=== PATIENT | male | born 1960 | race Asian ===

== ENCOUNTER 2019-08-12 12:03 | Inpatient (IN) | payer MEDICAID, OTHER ==
[~2019-08-12] VITALS: Ht 172.7 cm; Wt 74.8 kg
[2019-08-12 11:59] VITALS: BP 142/82
--- NOTE | 2019-08-12 12:14 | NUR ---
ED Nurse Note: RECEUVED REPORT FROM EDMAR BATISTA RN, PT BROUGHT IN BY AMBULANCE AND PICKED UP FROM A CLINIC CAME IN DUE TO RESPIRATORY DISTRESS AND LOW OXYGEN SATURATION. PER EMS, PT WAS COUGHING X 2 DAYS. DENIES CP. AAOX4, AMBULATORY WITH SOB AT REST. NOTED SKIN IS PALE BUT WARM TO TOUCH.
--- NOTE | 2019-08-12 12:15 | NUR ---
Note undone in EDM - 08/12/19 at 1545 by BILL ED Nurse Note: RECEUVED REPORT FROM EDMAR BATISTA RN, PT BROUGHT IN BY AMBULANCE AND PICKED UP FROM A CLINIC CAME IN DUE TO RESPIRATORY DISTRESS AND LOW OXYGEN SATURATION. PER EMS, PT WAS COUGHING X 2 DAYS. DENIES CP. AAOX1, AMBULATORY WITH SOB AT REST. NOTED SKIN IS PALE BUT WARM TO TOUCH.
--- NOTE | 2019-08-12 12:15 | Emergency Room Report ---
History of Present Illness General Chief Complaint: Dyspnea/Respdistress Source: Patient Present Illness HPI Disclaimer: Please note that this report is being documented using [employer] technology. This can lead to erroneous entry secondary to incorrect interpretation by the dictating instrument. HPI: 58-year-old male with no reported medical history presents for evaluation of shortness of breath. He is primarily Yoruba speaking. Patient was seen at his PMDs office today for not feeling well and a nonproductive cough of 3 days duration. He became acutely short of breath while at the office and EMS was called. They found him hypoxic saturating in the low 80s. Improved somewhat with nasal cannula but not greater than 88%. Otherwise denying any fever. He had chest pain 3 days ago but no longer complaining of it. Denies lower extremity edema. Denies any recent nasal congestion, sinus pain, sore throat, rash, fevers. Smokes cigarettes. PMH: Denies PSH: Denies Allergies: Denies Social Hx: Smokes cigarettes Allergies: Coded Allergies: No Known Allergies (Unverified , 08/12/19) Nursing Documentation-PMH Past Medical History: No Stated History Review of Systems All Other Systems: negative except mentioned in HPI Physical Exam Vital Signs Date Time Temp Pulse Resp B/P (MAP) Pulse Ox O2 Delivery O2 Flow Rate FiO2 08/12/19 11:27 97.5 142/82 (102) Room Air General: Awake and alert, no acute distress HEENT: NC/AT. EOMI. Cardiovascular: Tachycardic. S1 and S2 normal. No murmur appreciated Resp: 92% on 10 L nonrebreather. Increased work of breathing. Intermittent cough. Crackles mcfp up the left lung. No wheezing Abdomen: Abdomen is soft, nondistended. Nontender Skin: Intact. No abrasions, laceration or rash over the exposed skin MSK: Normal tone and bulk. Moving all extremities. No obvious deformity. No lower extremity edema Neuro: Awake and alert. Mentating appropriately. Procedures Critical Care Time Critical Care Time Total critical care time: Approximately 45 minutes Due to a high probability of clinically significant, life threatening deterioration, the patient required the highest level of preparedness to intervene emergently and I personally spent this critical care time directly and personally managing the patient. This critical care time included obtaining a history, examining the patient, pulse oximetry, ordering and reviewing studies , ordering treatments, evaluating response to treatment and updating management plan as needed, frequent reassessment and discussion with other providers as well as arranging for ultimate disposition. This critical to care time was performed to assess and manage the high probability of life-threatening deterioration that could result in multiorgan failure. This critical care time is separate from the separately billable procedures and treating other patients. Medical Decision Making ER Course 58-year-old male no reported medical history presents for evaluation of sudden onset shortness of breath in the setting of 3 days worsening cough. Differential includes was not limited to pneumonia, bronchitis, viral illness, influenza, pneumothorax, pleural effusion, ACS, CHF, PE. Patient has bilateral crackles, persistent hypoxia requiring increasing oxygen now on 10 L nonrebreather. We will start broad sepsis work-up including EKG, chest x-ray, labs including lactate. Laboratory Tests Test 08/12/19 11:50 08/12/19 12:50 White Blood Count 10.7 K/UL (4.8-10.8) Red Blood Count 4.77 M/UL (4.70-6.10) Hemoglobin 14.5 G/DL (14.2-18.0) Hematocrit 42.8 % (42.0-52.0) Mean Corpuscular Volume 90 FL (80-99) Mean Corpuscular Hemoglobin 30.4 PG (27.0-31.0) Mean Corpuscular Hemoglobin Concent 33.8 G/DL (32.0-36.0) Red Cell Distribution Width 11.4 % (11.6-14.8) L Platelet Count 323 K/UL (150-450) Mean Platelet Volume 5.8 FL (6.5-10.1) L Neutrophils (%) (Auto) 79.9 % (45.0-75.0) H Lymphocytes (%) (Auto) 10.5 % (20.0-45.0) L Monocytes (%) (Auto) 8.8 % (1.0-10.0) Eosinophils (%) (Auto) 0.2 % (0.0-3.0) Basophils (%) (Auto) 0.6 % (0.0-2.0) Prothrombin Time 10.4 SEC (9.30-11.50) Prothrombin Time INR 1.0 (0.9-1.1) PTT 27 SEC (23-33) D-Dimer 1.07 mg/L FEU (0.00-0.49) H Sodium Level 139 MMOL/L (136-145) Potassium Level 4.0 MMOL/L (3.5-5.1) Chloride Level 103 MMOL/L (98-107) Carbon Dioxide Level 24 MMOL/L (21-32) Anion Gap 12 mmol/L (5-15) Blood Urea Nitrogen 18 mg/dL (7-18) Creatinine 0.9 MG/DL (0.55-1.30) Estimate Glomerular Filtration Rate > 60 mL/min (>60) Glucose Level 154 MG/DL (74-106) H Calcium Level 9.0 MG/DL (8.5-10.1) Total Bilirubin 0.9 MG/DL (0.2-1.0) Aspartate Amino Transferase (AST) 22 U/L (15-37) Alanine Aminotransferase (ALT) 27 U/L (12-78) Alkaline Phosphatase 43 U/L (46-116) L Troponin I 0.022 ng/mL (0.000-0.056) Pro-B-Type Natriuretic Peptide 1548 pg/mL (0-125) H Total Protein 7.0 G/DL (6.4-8.2) Albumin 3.2 G/DL (3.4-5.0) L Globulin 3.8 g/dL Albumin/Globulin Ratio 0.8 (1.0-2.7) L Arterial Blood pH 7.398 (7.350-7.450) Arterial Blood Partial Pressure CO2 35.0 mmHg (35.0-45.0) Arterial Blood Partial Pressure O2 57.8 mmHg (75.0-100.0) L Arterial Blood HCO3 21.1 mmol/L (22.0-26.0) L Arterial Blood Oxygen Saturation 88.2 % (95-100) *L Arterial Blood Base Excess -3.0 (-2-2) L Jason Test Positive Microbiology Date/Time Source Procedure Growth Status 08/12/19 11:30 Nasal Nares - Final Complete 08/12/19 11:30 Nasal Nares - Final Complete EKG Diagnostic Results EKG Time: 12:09 Rate: tachycardiac Rhythm: NSR ST Segments: no acute changes Other Impression Sinus tachycardia, normal axis, normal intervals. No ST segment changes Rhythm Strip Diag. Results Rhythm Strip Time: 12:09 EP Interpretation: yes Rate: 110s Rhythm: NSR, no PVC's, no ectopy Chest X-Ray Diagnostic Results Chest X-Ray Diagnostic Results : Chest X-Ray Ordered: Yes # of Views/Limited/Complete: 1 View Indication: Shortness of Breath EP Interpretation: Yes Interpretation: other - Bilateral consolidations. Questionable pulmonary procedure in the past given lung scarring Impression: Other - Bilateral pneumonia, lung scarring Electronically Signed by: Electronically signed by Dr. Taz Bee Reevaluation Time: 13:40 Last Vital Signs Date Time Temp Pulse Resp B/P (MAP) Pulse Ox O2 Delivery O2 Flow Rate FiO2 08/12/19 11:27 97.5 142/82 (102) Room Air Reevaluation Impression Chest x-ray concerning for bilateral pneumonia. Cultures are sent and patient was treated with vancomycin and Zosyn. There is some scarring in the right lung unknown significance. Patient's family says that he had pleural effusions in the past. This may be prior pleurodesis. Labs show normal white count to though there is a shift. Blood gas shows hypoxia with an O2 saturation of 88%. The patient started on BiPAP. Normal renal function, troponin is negative. Peptide slightly elevated at 1500. D-dimer is positive. At this time I have far less concern for pulmonary embolism given his clinical appearance and his x- ray. Patient cannot tolerate laying flat for a CTA at this time. We will treat his pneumonia and reevaluate. He will require admission to the stepdown unit. Tachycardia is improving. Scripts No Active Prescriptions or Reported Meds Taz Bee MD Aug 12, 2019 12:15
--- NOTE | 2019-08-12 12:44 | NUR ---
ED Nurse Note: CALLED RADIOLOGY FOR CXR.
--- NOTE | 2019-08-12 12:50 | NUR ---
ED Nurse Note: SKIN FORMER AT THE BED SIDE FOR CXR.
[2019-08-12 12:52] LABS: BASOPHILS % (AUTO) 0.6 % (0.0-2.0); EOSINOPHILS % (AUTO) 0.2 % (0.0-3.0); HEMATOCRIT 42.8 % (42.0-52.0); HEMOGLOBIN 14.5 G/DL (14.2-18.0); LYMPHOCYTES % (AUTO) 10.5 % (20.0-45.0); MEAN CORPUSCULAR VOLUME 90 FL (80-99); MONOCYTES % (AUTO) 8.8 % (1.0-10.0); NEUTROPHILS % (AUTO) 79.9 % (45.0-75.0); PLATELET COUNT 323 K/UL (150-450); RED BLOOD COUNT 4.77 M/UL (4.70-6.10); RED CELL DISTRIBUTION WIDTH 11.4 % (11.6-14.8); WHITE BLOOD COUNT 10.7 K/UL (4.8-10.8)
[2019-08-12 12:56] LABS: ANION GAP 12 mmol/L (5-15); BLOOD UREA NITROGEN 18 mg/dL (7-18); CARBON DIOXIDE 24 MMOL/L (21-32); CHLORIDE 103 MMOL/L (98-107); CREATININE 0.9 MG/DL (0.55-1.30); SODIUM 139 MMOL/L (136-145)
[2019-08-12 13:04] LABS: ALANINE AMINOTRANSFERASE 27 U/L (12-78); ALBUMIN 3.2 G/DL (3.4-5.0); ALBUMIN/GLOBULIN RATIO 0.8 (1.0-2.7); ALKALINE PHOSPHATASE 43 U/L (46-116); ASPARTATE AMINO TRANSFERASE 22 U/L (15-37); BILIRUBIN,TOTAL 0.9 MG/DL (0.2-1.0)
--- NOTE | 2019-08-12 13:24 | NUR ---
ED Nurse Note: RT AT THE BED SIDE FOR ABG.
[2019-08-12] MEDS ORDERED: Vancomycin 1 GM in NS 275 ML IVPB ONE (13:30)
[2019-08-12] MEDS ORDERED: Piperacillin/Tazobactam 3.375 GM in NS 110 ML IVPB ONE (13:30)
[2019-08-12 13:54] VITALS: BP 140/104
--- NOTE | 2019-08-12 14:15 | NUR ---
ED Nurse Note: PT UNABLE TO PROVIDE SPUTUM AT THIS TIME.
[2019-08-12 14:43] VITALS: BP 139/99
--- NOTE | 2019-08-12 14:47 | NUR ---
ED Nurse Note: JUDD (SON) [phone]
--- NOTE | 2019-08-12 15:10 | Diagnostic Imaging Report ---
Indication: Shortness of breath Technique: One view of the chest Comparison: none Findings: There are fairly extensive infiltrates bilaterally in a predominantly perihilar distribution. Dense pleural calcifications and thickening are seen in the right lateral lung. There may be trace pleural fluid bilaterally. The heart is borderline enlarged. The aorta is tortuous and ectatic Impression: Bilateral extensive but predominantly perihilar infiltrates versus edema Possible trace bilateral pleural effusions Dense right-sided pleural calcifications, may indicate old inflammatory disease Borderline cardiomegaly
[2019-08-12] MEDS ORDERED: Morphine Sulfate 2mg/ml Inj(IV/IM USE ONLY) IVP PRN (15:45)
[2019-08-12] MEDS ORDERED: Albuterol/Ipratropium 3ml neb HHN PRN (15:45)
[2019-08-12] MEDS ORDERED: Nitroglycerin Subl 0.4mg tab SL PRN (15:45)
[2019-08-12] MEDS ORDERED: Omnipaue 350mg/ml 100ml vial INJ PRN (15:45)
[2019-08-12] MEDS ORDERED: Miralax 17gm pkt ORAL PRN (15:45)
--- NOTE | 2019-08-12 15:45 | NUR ---
ED Nurse Note: REPORT GIVEN TO GABINO CURTIS OF SDU.
--- NOTE | 2019-08-12 16:30 | NUR ---
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
[2019-08-12 16:40] VITALS: BP 149/99
--- NOTE | 2019-08-12 17:04 | Diagnostic Imaging Report ---
ndication: Short of breath Technique: IV administration nonionic contrast. Spiral acquisitions obtained from the lung bases to the lung apices. Multiplanar and 3-D reconstructions were generated. Total dose length product 764 mGycm. CTDIvol(s) 23, 78, 15 mGy. Dose reduction achieved using automated exposure control Comparison: none. Reference made to chest radiograph of earlier the same day Findings: Pulmonary arteries are well-opacified. No intraluminal filling defects or other findings to suggest acute ulnar embolus are demonstrated. Right main pulmonary artery is ectatic, measuring 28 mm diameter. The main pulmonary artery is somewhat ectatic also, measuring 34 mm. No right ventricular dilatation is demonstrated. There is mild four-chamber cardiomegaly, however. No evidence of thoracic aortic aneurysm or dissection. Normal caliber and classic branching anatomy of the great neck vessels. Normal caliber and anatomy of the proximal abdominal visceral vessels. The lungs demonstrate extensive airspace disease bilaterally, diffuse but most dense in the perihilar regions. There is extensive calcification and thickening of the pleura on the right. No diaphragmatic pleural calcification demonstrated. No left-sided calcification demonstrated. No left-sided pleural fluid. There are enlarged mediastinal lymph nodes, largest node a left paratracheal node that measures 2.7 x 2 cm. The included portion of the thyroid is unremarkable. The esophagus is unremarkable. No pericardial effusion. Included upper abdominal viscera are unremarkable. Impression: Negative for evidence of acute pulmonary embolus or other acute thoracic vascular pathology Extensive bilateral pulmonary parenchymal airspace disease. This may indicate pneumonia or pulmonary edema Extensive right-sided pleural thickening and calcification, likely on the basis of old inflammation Cardiomegaly Somewhat ectatic main and right pulmonary arteries, suggestive of but not diagnostic for pulmonary arterial hypertension Mediastinal lymphadenopathy. This is nonspecific, could be reactive or neoplastic The CT scanner at [facility] is accredited by the [employer] and the scans are performed using protocols designed to limit radiation exposure to as low as reasonably achievable to attain images of sufficient resolution adequate for diagnostic evaluation.
--- NOTE | 2019-08-12 18:00 | NUR ---
NURSE NOTES: Pt sitting in bed in high fowlers position,verbalized feeling better ,still on Bipap,no resp distress presented,son at bedside.
--- NOTE | 2019-08-12 19:00 | NUR ---
HAND-OFF: Report given to Judith Mosley RN.
--- NOTE | 2019-08-12 19:31 | History & Physical ---
History and Physical History & Physicial Dictated for Int Med-DR Lentz [id number]. Kuldeep Márquez MD Aug 12, 2019 19:31
--- NOTE | 2019-08-12 19:58 | NUR ---
NURSE NOTES: received pt from Tamiko Ricketts RN., pt is awake and resting on the bed and sitting up right position with bipap 12/6 Fio2 100% at this moment. pt is AOx4 and Uzbek speaker, pt's son is at the bed side. pt states no pain at this moment. pt's O2sat with Bipap is at 100% at this moment.Left AC 20G IV is intact, clean, and patent that 1/2 NS is running at 150ml/hr, bed at the lowest position, locked, and alarmed. will continue to monitor pt with plan of care. call light within reach.
[2019-08-12 20:00] VITALS: BP 122/85
[2019-08-12] MEDS: Cefepime HCl 2 GM in D5W 110 ML IV SCH (21:24)
[2019-08-12] MEDS: Heparin 5000 units/ml inj SUBQ SCH (21:26)
[2019-08-12 22:43] LABS: APPEARANCE,URINE CLEAR; BILIRUBIN, URINE NEGATIVE (NEGATIVE); GLUCOSE, URINE (UA) NEGATIVE (NEGATIVE); KETONES,URINE 3+ (NEGATIVE); LEUKOCYTE ESTERASE ,URINE NEGATIVE (NEGATIVE); NITRITE,URINE NEGATIVE (NEGATIVE); PH,URINE 5 (4.5-8.0); PROTEIN,URINE 2+ (NEGATIVE); UROBILINOGEN,URINE NORMAL MG/DL (0.0-1.0)
[2019-08-12 22:44] LABS: COLOR,URINE YELLOW
--- NOTE | 2019-08-12 22:45 | History and Physical Report ---
DATE OF ADMISSION: 08/12/2019 CHIEF COMPLAINT: The patient is a 58-year-old male, presents with chief complaint of shortness of breath. HISTORY OF PRESENT ILLNESS: The patient denies previous medical history. The patient states he has had a cough for three days. The patient became increasingly short of breath. The patient called EMS this morning. The patient was found to have oxygen saturation in the low 80s. The patient was transported to [facility] emergency room for respiratory distress. REVIEW OF SYSTEMS: CONSTITUTIONAL: The patient denies weight loss or gain. The patient denies fevers or chills. HEENT: The patient denies ear or throat pain. The patient denies headache. CARDIOVASCULAR: The patient denies palpitations or chest pain. CHEST: The patient complains of shortness of breath as above. The patient denies wheezes. ABDOMEN: The patient denies nausea, vomiting, diarrhea, or constipation. GENITOURINARY: The patient denies dysuria or increased frequency of urination. NEUROMUSCULAR: The patient denies seizures or generalized weakness. PAST MEDICAL HISTORY: The patient denies. PAST SURGICAL HISTORY: The patient denies. CURRENT MEDICATIONS: The patient denies. ALLERGIES: No known drug allergies. SOCIAL HISTORY: The patient is single and lives alone. The patient admits to tobacco use one pack per day. The patient denies alcohol use. PHYSICAL EXAMINATION: VITAL SIGNS: Temperature 97.5, respirations 34, pulse 117, blood pressure 142/82, and oxygen saturation 87% on 10 L simple mask. GENERAL: The patient is well-developed and well-nourished male, who is in moderate respiratory distress. HEENT: Eyes, pupils are equal and responsive to light and accommodation. Extraocular movements are intact. NECK: Supple without lymphadenopathy. CHEST: Decreased breath sounds in bilateral bases. Otherwise, without crackles or rales. CARDIOVASCULAR: Regular rate. S1, S2 normal without murmurs, rubs, or gallops. ABDOMINAL: Soft, nontender, and nondistended. Positive bowel sounds. No evidence of hepatosplenomegaly. Currently, no rebound or guarding noted. EXTREMITIES: Negative for clubbing, cyanosis, or edema. RECTAL: Not performed. GENITAL: Not performed. NEUROLOGIC: Cranial nerves II through XII are grossly intact without focal deficits. Motor strength is 5/5 bilaterally. Deep tendon reflexes are 2+, plantar. LABORATORY AND DIAGNOSTIC STUDIES: WBC 10.7, hemoglobin 14.5, hematocrit 42.8, and platelets 323,000. Sodium 139, potassium 4.0, chloride 103, CO2 24, BUN 18, creatinine 0.9, glucose 154. BNP elevated at 1548. Chest x-ray was reported as bilateral extensive perihilar infiltrate versus edema. ASSESSMENT: This is a 58-year-old male: 1. Shortness of breath. 2. Respiratory distress. 3. Bilateral pneumonia. 4. Congestive heart failure. TREATMENT: 1. Shortness of breath/respiratory distress/bilateral pneumonia. Pulmonary consultation has been obtained with Dr. Tiffani Baker. The patient is admitted to the [facility] unit. The patient has been started empirically on vancomycin and cefepime. We will follow recommendations of Pulmonary. 2. Congestive heart failure. Cardiology consultation has been obtained with Dr. Jose Arambula. We will follow recommendation of Cardiology. An echocardiogram is pending. Kuldeep Márquez M.D. DR: TIFF JOB#: [id number] CC:
[2019-08-13] VITALS: BP 123/88
[2019-08-13] MEDS: Vancomycin 750 MG in D5W 275 ML IVPB SCH ×2 (01:50→12:34)
--- NOTE | 2019-08-13 03:00 | NUR ---
NURSE NOTES: pt is resting on the bed, states no pain at this moment.oral care given. Bipap is on. bed at the lowest position, alarmed, and locked. call light within reach. will continue to monitor pt.
[2019-08-13 04:00] VITALS: BP 120/85
[2019-08-13 06:05] LABS: BASOPHILS % (AUTO) 1.2 % (0.0-2.0); EOSINOPHILS % (AUTO) 1.1 % (0.0-3.0); HEMATOCRIT 36.4 % (42.0-52.0); HEMOGLOBIN 12.3 G/DL (14.2-18.0); MEAN CORPUSCULAR VOLUME 91 FL (80-99); MONOCYTES % (AUTO) 10.9 % (1.0-10.0); NEUTROPHILS % (AUTO) 71.8 % (45.0-75.0); PLATELET COUNT 258 K/UL (150-450); RED BLOOD COUNT 4.01 M/UL (4.70-6.10); RED CELL DISTRIBUTION WIDTH 11.6 % (11.6-14.8); WHITE BLOOD COUNT 8.5 K/UL (4.8-10.8)
[2019-08-13 06:48] LABS: ALANINE AMINOTRANSFERASE 20 U/L (12-78); ALBUMIN 2.5 G/DL (3.4-5.0); ALBUMIN/GLOBULIN RATIO 0.8 (1.0-2.7); ALKALINE PHOSPHATASE 35 U/L (46-116); ANION GAP 8 mmol/L (5-15); ASPARTATE AMINO TRANSFERASE 14 U/L (15-37); BLOOD UREA NITROGEN 18 mg/dL (7-18); CALCIUM 8.1 MG/DL (8.5-10.1); CARBON DIOXIDE 25 MMOL/L (21-32); CHLORIDE 104 MMOL/L (98-107); CREATININE 0.8 MG/DL (0.55-1.30); SODIUM 137 MMOL/L (136-145)
--- NOTE | 2019-08-13 07:14 | NUR ---
RESPIRATORY NOTE: received pt on bipap on current settings with fio2 70%. will attempt to titrate through out the day. foam barrier in place and no visible redness or skin wounds. will cont to monitor.
--- NOTE | 2019-08-13 07:24 | NUR ---
HAND-OFF: Report given to Tamiko Duff RN. pt is in stable condition
--- NOTE | 2019-08-13 07:54 | NUR ---
NURSE NOTES: Report received from Judith Mosley RN.Pt sitting upright on bed ,asleep easy to arouse,noted no resp distress on BIPAP / ,Fio2 70%,o2 sat 97%,no signs of pain or discomfort S-R on the monitor,uses urinal to void,skin warm and dry ,IV site to LAC intact with IVF 1/2 NS at 150 ml/hr,call peña within reach,SR up x2 ,HOB elevated,bed lock in lowest position,will continue with plans of care.
[2019-08-13 08:00] VITALS: BP 117/82
[2019-08-13] MEDS: Cefepime HCl 2 GM in D5W 110 ML IV SCH ×2 (08:34→21:36)
[2019-08-13] MEDS: Heparin 5000 units/ml inj SUBQ SCH ×2 (08:36→21:38)
[2019-08-13 12:00] VITALS: BP 130/87
--- NOTE | 2019-08-13 12:00 | NUR ---
NURSE NOTES: Dr Horowitz at bedside,discussed with pt and son acting as certified court interpreter re plans of care.
--- NOTE | 2019-08-13 12:47 | Consultation ---
History of Present Illness General Date patient seen: Aug 13, 2019 Chief Complaint: Dyspnea/Respdistress Reason for Consultation: PNA Present Illness HPI Mr. Styles is a 58 yo male who was sent to the ED from his PMD for cough and SOB. The patient reports no known medical problems. He has been having 7 days of dry cough and not feeling well. He denies having fever, sore throat, or chest pain and sick contacts. He has had a chronic cough for many years bit no ULLOA. He also reports muscle pain and diarrhea which have since resolved. He was recently in [place] for three months. He returned 5 days ago. In the ED he was afebrile with no leukocytosis. His UA was neg. He had significant hypoxia and has to be placed on BiPAP for a short time. He is now on facemask. A CTA of the chest showed Extensive bilateral pulmonary parenchymal airspace disease. This may indicate pneumonia or pulmonary edema. 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 FamHx Not Contributory Allergies: Coded Allergies: No Known Allergies (Unverified , 08/12/19) Medication History No Active Prescriptions or Reported Meds Patient History Healthcare decision maker n/a Resuscitation status Full Code Advanced Directive on File No Review of Systems ROS Narrative 12 point ROS negative except as noted in the HPI Physical Exam Physical Exam Narrative Gen: NAD On facemask HEENT: NCAT, MMM, EOMI, PERRL, No Oral lesion, no scleral icterus NECK: full range of motion, supple, no meningismus, No LAD, No JVD LUNGS: Coarse B/L, No Accessory muscle use CARDS: RRR, S1, S2, No M/R/G, ABD: Soft, NT, ND, No R/G, + BS, No HSM, No Masses : Deferred Ext: C/C/E, Pulses 2+ B/L (DP, Rad): NEURO: A/O x 4, Strength and Sensation Grossly intact PSYCH: Normal mood and affect SKIN: Warm/dry, No rashes Last 24 Hour Vital Signs Date Time Temp Pulse Resp B/P (MAP) Pulse Ox O2 Delivery O2 Flow Rate FiO2 08/13/19 12:00 50 08/13/19 10:59 98 31 93 Facial 50 08/13/19 09:19 95 08/13/19 08:44 104 31 97 Facial 60 08/13/19 08:00 97.6 97 18 117/82 (94) 98 08/13/19 08:00 60 08/13/19 08:00 Bi-pap 08/13/19 07:13 93 32 99 Facial 70 08/13/19 05:17 98 36 100 Facial 70 08/13/19 04:00 Bi-pap 08/13/19 04:00 98.7 100 28 120/85 (97) 100 08/13/19 04:00 80 08/13/19 03:32 91 08/13/19 03:00 100 32 98 Facial 80 08/13/19 01:06 98 32 100 Facial 100 08/13/19 00:00 92 08/13/19 00:00 100 08/13/19 00:00 99.8 97 26 123/88 (100) 100 08/12/19 23:55 Bi-pap 08/12/19 23:49 101 36 99 Facial 100 08/12/19 21:00 101 32 100 Facial 100 08/12/19 20:00 100 08/12/19 20:00 98.6 99 24 122/85 (97) 100 08/12/19 19:32 104 08/12/19 19:19 106 44 99 Facial 100 08/12/19 17:23 106 37 100 Facial 100 08/12/19 17:05 Bi-pap 15.0 08/12/19 16:40 98.1 101 25 149/99 (116) 100 08/12/19 16:02 98.9 90 38 129/98 100 Bi-pap 10.0 100 08/12/19 15:17 101 35 100 Facial 100 08/12/19 14:43 98.0 87 40 139/99 100 Bi-pap 100 08/12/19 13:54 97.5 90 25 140/104 100 Bi-pap 08/12/19 13:53 103 30 100 Facial 100 Intake and Output 08/12/19 08/13/19 19:00 07:00 Intake Total 683.7 ml 2035.0 ml Output Total 300 ml Balance 683.7 ml 1735.0 ml Intake Oral 240 ml IV Total 443.7 ml 2035.0 ml Output Urine Total 300 ml # Voids 1 1 Laboratory Tests Test 08/12/19 12:50 08/12/19 13:15 08/12/19 22:00 08/13/19 05:10 Arterial Blood pH 7.398 (7.350-7.450) Arterial Blood Partial Pressure CO2 35.0 mmHg (35.0-45.0) Arterial Blood Partial Pressure O2 57.8 mmHg (75.0-100.0) L Arterial Blood HCO3 21.1 mmol/L (22.0-26.0) L Arterial Blood Oxygen Saturation 88.2 % (95-100) *L Arterial Blood Base Excess -3.0 (-2-2) L Jason Test Positive Lactic Acid Level 1.40 mmol/L (0.4-2.0) Urine Color Yellow Urine Appearance Clear Urine pH 5 (4.5-8.0) Urine Specific [place] 1.015 (1.005-1.035) Urine Protein 2+ (NEGATIVE) H Urine Glucose (UA) Negative (NEGATIVE) Urine Ketones 3+ (NEGATIVE) H Urine Blood Negative (NEGATIVE) Urine Nitrite Negative (NEGATIVE) Urine Bilirubin Negative (NEGATIVE) Urine Urobilinogen Normal MG/DL (0.0-1.0) Urine Leukocyte Esterase Negative (NEGATIVE) Urine RBC 0-2 /HPF (0 - 0) H Urine WBC 0-2 /HPF (0 - 0) Urine Squamous Epithelial Cells None /LPF (NONE/OCC) Urine Bacteria None /HPF (NONE) White Blood Count 8.5 K/UL (4.8-10.8) Red Blood Count 4.01 M/UL (4.70-6.10) L Hemoglobin 12.3 G/DL (14.2-18.0) L Hematocrit 36.4 % (42.0-52.0) L Mean Corpuscular Volume 91 FL (80-99) Mean Corpuscular Hemoglobin 30.5 PG (27.0-31.0) Mean Corpuscular Hemoglobin Concent 33.7 G/DL (32.0-36.0) Red Cell Distribution Width 11.6 % (11.6-14.8) Platelet Count 258 K/UL (150-450) Mean Platelet Volume 5.9 FL (6.5-10.1) L Neutrophils (%) (Auto) 71.8 % (45.0-75.0) Lymphocytes (%) (Auto) 15.0 % (20.0-45.0) L Monocytes (%) (Auto) 10.9 % (1.0-10.0) H Eosinophils (%) (Auto) 1.1 % (0.0-3.0) Basophils (%) (Auto) 1.2 % (0.0-2.0) Sodium Level 137 MMOL/L (136-145) Potassium Level 4.0 MMOL/L (3.5-5.1) Chloride Level 104 MMOL/L (98-107) Carbon Dioxide Level 25 MMOL/L (21-32) Anion Gap 8 mmol/L (5-15) Blood Urea Nitrogen 18 mg/dL (7-18) Creatinine 0.8 MG/DL (0.55-1.30) Estimat Glomerular Filtration Rate > 60 mL/min (>60) Glucose Level 131 MG/DL (74-106) H Hemoglobin A1c 6.6 % (4.3-6.0) H Calcium Level 8.1 MG/DL (8.5-10.1) L Total Bilirubin 1.0 MG/DL (0.2-1.0) Aspartate Amino Transf (AST/SGOT) 14 U/L (15-37) L Alanine Aminotransferase (ALT/SGPT) 20 U/L (12-78) Alkaline Phosphatase 35 U/L (46-116) L Total Protein 5.8 G/DL (6.4-8.2) L Albumin 2.5 G/DL (3.4-5.0) L Globulin 3.3 g/dL Albumin/Globulin Ratio 0.8 (1.0-2.7) L Height (Feet): 5 Height (Inches): 8.00 Weight (Pounds): 150 Medications Current Medications Medications (Trade) Dose Ordered Sig/Jessie Route PRN Reason Start Time Stop Time Status Last Admin Dose Admin Acetaminophen (Tylenol) 650 mg Q4H PRN ORAL fever 08/12/19 15:45 09/11/19 15:44 Albuterol/ Ipratropium (Albuterol/ Ipratropium) 3 ml Q4H PRN HHN Shortness of Breath 08/12/19 15:45 08/17/19 15:44 Cefepime HCl 2 gm/ Dextrose 110 ml @ 220 mls/hr EVERY 12 HOURS IV 08/12/19 21:00 08/19/19 20:59 08/13/19 08:34 Heparin Sodium (Porcine) (Heparin 5000 units/ml) 5,000 units EVERY 12 HOURS SUBQ 08/12/19 21:00 09/11/19 20:59 08/13/19 08:36 Iohexol (Omnipaque) 100 mg NOW PRN INJ Radiology Procedure 08/12/19 15:45 08/14/19 15:45 Morphine Sulfate (Morphine Sulfate) 2 mg Q4H PRN IVP Moderate Pain (Pain Scale 4-6) 08/12/19 15:45 08/19/19 15:44 Nitroglycerin (Ntg) 0.4 mg Q5M PRN SL Prn Chest Pain 08/12/19 15:45 09/11/19 15:44 Ondansetron HCl (Zofran) 4 mg Q6H PRN IVP Nausea & Vomiting 08/12/19 15:45 09/11/19 15:44 Polyethylene Glycol (Miralax) 17 gm DAILYPRN PRN ORAL Constipation 08/12/19 15:45 09/11/19 15:44 Sodium Chloride 1,000 ml @ 150 mls/hr Q6H40M IV 08/12/19 16:15 09/11/19 16:14 08/13/19 12:33 Temazepam (Restoril) 15 mg HSPRN PRN ORAL Insomnia 08/12/19 15:45 08/19/19 15:44 08/13/19 01:51 Vancomycin HCl 750 mg/Dextrose 275 ml @ 183.3 mls/ hr Q12H IVPB 08/13/19 01:00 08/18/19 00:59 08/13/19 12:34 Assessment/Plan Assessment/Plan: 58 yo male who was sent to the ED from his PMD for cough and SOB. Respiratory failure Pulm Edema vs PNA Now on facemask Active smoker CTA 08/13/19 - Negative for evidence of acute pulmonary embolus or other acute thoracic vascular pathology Extensive bilateral pulmonary parenchymal airspace disease. This may indicate pneumonia or pulmonary edema. Extensive right-sided pleural thickening and calcification, likely on the basis of old inflammation Inf (-) No leukocytosis No Fever BNP 1548 - HF? Echo Pend PLAN - Start Azithromycin #1 QTc 465 - Continue Cefepeme #1 - 08/13/19 SP Vancomcyin #1 - Check Urine Strep and legionella Ag - f/u cultures - check Quantiferon - f/u TTE - Monitor CBC and Temps Thank you for this consult. [facility] will continue to follow the patient with you during this hospitalization. David Horowitz MD Aug 13, 2019 12:47
--- NOTE | 2019-08-13 14:30 | NUR ---
NURSE NOTES: Dr Lentz at bedside ,discussed with pt and pt's son re plans of care.
--- NOTE | 2019-08-13 15:00 | Internal Med Progress Note ---
Subjective Physician Name Meliton Lentz Attending Physician Meliton Lentz MD Current Medications Medications (Trade) Dose Ordered Sig/Jessie Route PRN Reason Start Time Stop Time Status Last Admin Dose Admin Acetaminophen (Tylenol) 650 mg Q4H PRN ORAL fever 08/12/19 15:45 09/11/19 15:44 08/13/19 13:32 Albuterol/ Ipratropium (Albuterol/ Ipratropium) 3 ml Q4H PRN HHN Shortness of Breath 08/12/19 15:45 08/17/19 15:44 Cefepime HCl 2 gm/ Dextrose 110 ml @ 220 mls/hr EVERY 12 HOURS IV 08/12/19 21:00 08/19/19 20:59 08/13/19 08:34 Heparin Sodium (Porcine) (Heparin 5000 units/ml) 5,000 units EVERY 12 HOURS SUBQ 08/12/19 21:00 09/11/19 20:59 08/13/19 08:36 Iohexol (Omnipaque) 100 mg NOW PRN INJ Radiology Procedure 08/12/19 15:45 08/14/19 15:45 Morphine Sulfate (Morphine Sulfate) 2 mg Q4H PRN IVP Moderate Pain (Pain Scale 4-6) 08/12/19 15:45 08/19/19 15:44 Nitroglycerin (Ntg) 0.4 mg Q5M PRN SL Prn Chest Pain 08/12/19 15:45 09/11/19 15:44 Ondansetron HCl (Zofran) 4 mg Q6H PRN IVP Nausea & Vomiting 08/12/19 15:45 09/11/19 15:44 Polyethylene Glycol (Miralax) 17 gm DAILYPRN PRN ORAL Constipation 08/12/19 15:45 09/11/19 15:44 Sodium Chloride 1,000 ml @ 150 mls/hr Q6H40M IV 08/12/19 16:15 09/11/19 16:14 08/13/19 12:33 Temazepam (Restoril) 15 mg HSPRN PRN ORAL Insomnia 08/12/19 15:45 08/19/19 15:44 08/13/19 01:51 Allergies: Coded Allergies: No Known Allergies (Unverified , 08/12/19) Subjective awake, alert, responsive, off BIPAP, on VM, son at bedside Objective Last Vital Signs Date Time Temp Pulse Resp B/P (MAP) Pulse Ox O2 Delivery O2 Flow Rate FiO2 08/13/19 14:42 99 94 08/13/19 12:43 35 Facial 40 08/13/19 12:00 97.6 130/87 (101) 08/12/19 17:05 15.0 Laboratory Tests Test 08/12/19 22:00 08/13/19 05:10 Urine Color Yellow Urine Appearance Clear Urine pH 5 (4.5-8.0) Urine Specific [place] 1.015 (1.005-1.035) Urine Protein 2+ (NEGATIVE) H Urine Glucose (UA) Negative (NEGATIVE) Urine Ketones 3+ (NEGATIVE) H Urine Blood Negative (NEGATIVE) Urine Nitrite Negative (NEGATIVE) Urine Bilirubin Negative (NEGATIVE) Urine Urobilinogen Normal MG/DL (0.0-1.0) Urine Leukocyte Esterase Negative (NEGATIVE) Urine RBC 0-2 /HPF (0 - 0) H Urine WBC 0-2 /HPF (0 - 0) Urine Squamous Epithelial Cells None /LPF (NONE/OCC) Urine Bacteria None /HPF (NONE) White Blood Count 8.5 K/UL (4.8-10.8) Red Blood Count 4.01 M/UL (4.70-6.10) L Hemoglobin 12.3 G/DL (14.2-18.0) L Hematocrit 36.4 % (42.0-52.0) L Mean Corpuscular Volume 91 FL (80-99) Mean Corpuscular Hemoglobin 30.5 PG (27.0-31.0) Mean Corpuscular Hemoglobin Concent 33.7 G/DL (32.0-36.0) Red Cell Distribution Width 11.6 % (11.6-14.8) Platelet Count 258 K/UL (150-450) Mean Platelet Volume 5.9 FL (6.5-10.1) L Neutrophils (%) (Auto) 71.8 % (45.0-75.0) Lymphocytes (%) (Auto) 15.0 % (20.0-45.0) L Monocytes (%) (Auto) 10.9 % (1.0-10.0) H Eosinophils (%) (Auto) 1.1 % (0.0-3.0) Basophils (%) (Auto) 1.2 % (0.0-2.0) Sodium Level 137 MMOL/L (136-145) Potassium Level 4.0 MMOL/L (3.5-5.1) Chloride Level 104 MMOL/L (98-107) Carbon Dioxide Level 25 MMOL/L (21-32) Anion Gap 8 mmol/L (5-15) Blood Urea Nitrogen 18 mg/dL (7-18) Creatinine 0.8 MG/DL (0.55-1.30) Estimat Glomerular Filtration Rate > 60 mL/min (>60) Glucose Level 131 MG/DL (74-106) H Hemoglobin A1c 6.6 % (4.3-6.0) H Calcium Level 8.1 MG/DL (8.5-10.1) L Total Bilirubin 1.0 MG/DL (0.2-1.0) Aspartate Amino Transf (AST/SGOT) 14 U/L (15-37) L Alanine Aminotransferase (ALT/SGPT) 20 U/L (12-78) Alkaline Phosphatase 35 U/L (46-116) L Total Protein 5.8 G/DL (6.4-8.2) L Albumin 2.5 G/DL (3.4-5.0) L Globulin 3.3 g/dL Albumin/Globulin Ratio 0.8 (1.0-2.7) L Microbiology Date/Time Source Procedure Growth Status 08/12/19 11:30 Nasal Nares - Final Complete 08/12/19 11:30 Nasal Nares - Final Complete Intake and Output 08/12/19 08/13/19 19:00 07:00 Intake Total 683.7 ml 2035.0 ml Output Total 300 ml Balance 683.7 ml 1735.0 ml Intake Oral 240 ml IV Total 443.7 ml 2035.0 ml Output Urine Total 300 ml # Voids 1 1 Objective General: No acute distress, awake and alert HEENT: NCAT, sclera anicteric, PERRL, EOMI. Neck: Supple, no significant jugular venous distention, Lungs: Fair inspiratory effort, Decrease air at bases, no Wheeze or Rales. Heart: Regular rate and rhythm, normal S1/S2, no murmur. Abdomen: soft, nontender, nondistended. Normoactive bowel sounds. Extremities: No Cyanosis , clubbing or edema. Neuro: A&O x 3, Able to move all extremities Skin: warm, no rashes or lesions Psych: Normal mood and affect Assessment/Plan Assessment/Plan Acute Respiratory failure possible Pulm Edema vs PNA Bilateral Pneumonia CHF PLAN Abx: Azithromycin, Cefepime, Vancomycin Monitor Labs and Culture DC IVF Lasix 20mg X 1 dose Full code Heparin SQ 2D Echo Meliton Lentz MD Aug 13, 2019 15:00
[2019-08-13 16:00] VITALS: BP 112/75
[2019-08-13] MEDS ORDERED: Azithromycin 500 MG in D5W 275 ML IV SCH (16:00)
--- NOTE | 2019-08-13 17:54 | NUR ---
CASE MANAGEMENT: INITIAL REVIEW 58 YR OLD MALE BIBA FROM WORK CC: DYSPNEA/ RESP DISTRESS SI: PNA 97.5 103 16 142/82 100% 10L BG 154 BNP 1548 ABG: p02 57.8 HCO3 21.1 O2 SAT 88.2 DDIMER 1.07 IS: IV VANCO X1 IV ZOSYN X1 CXRAY CTA CHEST \: 2W STEPDOWN UNIT CASE MANAGEMENT: REVIEW 08/13/19 SI: PNA 97.6 111 20 130/87 95% BIPAP FI02 40 BG 131 CA+ 8.1 H/H 12.3/36.4 IS: IV ZITHROMAX X1 IV LASIX X1 IV CEFEPIME BID IV VANCO BID IVF NS@150ML/HR HEPARIN SQ BID \: 2W STEPDOWN UNIT
--- NOTE | 2019-08-13 18:00 | NUR ---
NURSE NOTES: pt sitting up on bed placed on 55% Venturi mask by R.T,tolerating well O2 sat 94%.family members at bedside.
--- NOTE | 2019-08-13 19:10 | NUR ---
HAND-OFF: Report given to Judith Mosley RN.
--- NOTE | 2019-08-13 19:11 | NUR ---
NURSE NOTES: received pt from Tamiko CURTIS., pt is resting on the bed AOx4, and pt's and daughter is at the bed side. pt IV site on Left AC 20g is leaking at this moment. Venturi mask at 55%.pt coughs little bit but no s/s of SOB.pt states no pain at this moment. explained family member regarding venturi mask. pt uses urinal. bed at the lowest position, alarmed, and locked.call light within reach. will continue to monitor pt with plan of care.
[2019-08-13 20:00] VITALS: BP 124/86
--- NOTE | 2019-08-13 23:29 | NUR ---
NURSE NOTES: pt has one yellow ring with royal on 4th finger. just took out the ring from pt's left hand, and pt states he wants to keep the ring with him and give to family tomorrow. will noted.
[2019-08-14] VITALS: BP 122/71
[2019-08-14 04:00] VITALS: BP 110/73
[2019-08-14 05:53] LABS: BASOPHILS % (AUTO) 0.3 % (0.0-2.0); EOSINOPHILS % (AUTO) 2.2 % (0.0-3.0); HEMATOCRIT 36.6 % (42.0-52.0); HEMOGLOBIN 12.3 G/DL (14.2-18.0); LYMPHOCYTES % (AUTO) 11.5 % (20.0-45.0); MEAN CORPUSCULAR VOLUME 91 FL (80-99); MONOCYTES % (AUTO) 9.2 % (1.0-10.0); NEUTROPHILS % (AUTO) 76.7 % (45.0-75.0); PLATELET COUNT 243 K/UL (150-450); RED BLOOD COUNT 4.03 M/UL (4.70-6.10); RED CELL DISTRIBUTION WIDTH 11.4 % (11.6-14.8); WHITE BLOOD COUNT 6.8 K/UL (4.8-10.8)
[2019-08-14 06:45] LABS: ALANINE AMINOTRANSFERASE 19 U/L (12-78); ALBUMIN 2.5 G/DL (3.4-5.0); ALBUMIN/GLOBULIN RATIO 0.7 (1.0-2.7); ALKALINE PHOSPHATASE 37 U/L (46-116); ANION GAP 9 mmol/L (5-15); ASPARTATE AMINO TRANSFERASE 12 U/L (15-37); BILIRUBIN,TOTAL 0.9 MG/DL (0.2-1.0); BLOOD UREA NITROGEN 15 mg/dL (7-18); CALCIUM 8.4 MG/DL (8.5-10.1); CARBON DIOXIDE 27 MMOL/L (21-32); CHLORIDE 102 MMOL/L (98-107); CREATININE 0.8 MG/DL (0.55-1.30); PHOSPHORUS 3.2 MG/DL (2.5-4.9); POTASSIUM 3.3 MMOL/L (3.5-5.1); SODIUM 138 MMOL/L (136-145)
--- NOTE | 2019-08-14 07:23 | NUR ---
HAND-OFF: Report given to Digna CURTIS . pt is in stable condition
--- NOTE | 2019-08-14 07:25 | NUR ---
NURSE NOTES: Received report from Laney Goddard RN. Observed patient in bed, awake, alert, verbally responsive. On Venturi mask at 55% FiO2, saturating 96%. No acute respiratory distress noted. IV on right wrist intact and patent. Patient still NPO at this time. Denies pain/discomfort. Safety precautions left in place; bed locked, alarmed, and in lowest position. side rails up x3, and call light left within reach. Will continue plan of care and will continue to monitor.
--- NOTE | 2019-08-14 07:45 | NUR ---
NURSE NOTES: Son at bedside, informed about patient's plan of care. Will continue to monitor.
[2019-08-14 08:00] VITALS: BP 116/79
[2019-08-14] MEDS: Cefepime HCl 2 GM in D5W 110 ML IV SCH ×2 (08:31→20:38)
[2019-08-14] MEDS: Heparin 5000 units/ml inj SUBQ SCH ×2 (08:33→20:39)
[2019-08-14 12:00] VITALS: BP 123/81
[2019-08-14] MEDS ORDERED: NS 275ml ONE (14:19)
[2019-08-14] MEDS ORDERED: 1/2 NS 1000ml IV ONE (14:19)
[2019-08-14] MEDS ORDERED: Tubing IV Secondary IV ONE (14:19)
[2019-08-14] MEDS: Azithromycin 250 MG in D5W 275 ML IV SCH (15:17)
[2019-08-14 16:00] VITALS: BP 107/44
--- NOTE | 2019-08-14 16:53 | Internal Med Progress Note ---
Subjective Date of Service: Aug 14, 2019 Physician Name Kuldeep Márquez Attending Physician Meliton Lentz MD Current Medications Medications (Trade) Dose Ordered Sig/Jessie Route PRN Reason Start Time Stop Time Status Last Admin Dose Admin Acetaminophen (Tylenol) 650 mg Q4H PRN ORAL fever 08/12/19 15:45 09/11/19 15:44 08/14/19 08:41 Albuterol/ Ipratropium (Albuterol/ Ipratropium) 3 ml Q4H PRN HHN Shortness of Breath 08/12/19 15:45 08/17/19 15:44 08/13/19 23:24 Azithromycin 250 mg/Dextrose 275 ml @ 275 mls/hr Q24HRS IV 08/14/19 15:00 08/20/19 15:59 08/14/19 15:17 Cefepime HCl 2 gm/ Dextrose 110 ml @ 220 mls/hr EVERY 12 HOURS IV 08/12/19 21:00 08/19/19 20:59 08/14/19 08:31 Heparin Sodium (Porcine) (Heparin 5000 units/ml) 5,000 units EVERY 12 HOURS SUBQ 08/12/19 21:00 09/11/19 20:59 08/14/19 08:33 Morphine Sulfate (Morphine Sulfate) 2 mg Q4H PRN IVP Moderate Pain (Pain Scale 4-6) 08/12/19 15:45 08/19/19 15:44 Nitroglycerin (Ntg) 0.4 mg Q5M PRN SL Prn Chest Pain 08/12/19 15:45 09/11/19 15:44 Ondansetron HCl (Zofran) 4 mg Q6H PRN IVP Nausea & Vomiting 08/12/19 15:45 09/11/19 15:44 Polyethylene Glycol (Miralax) 17 gm DAILYPRN PRN ORAL Constipation 08/12/19 15:45 09/11/19 15:44 Temazepam (Restoril) 15 mg HSPRN PRN ORAL Insomnia 08/12/19 15:45 08/19/19 15:44 08/14/19 01:40 Allergies: Coded Allergies: No Known Allergies (Unverified , 08/12/19) ROS Limited/Unobtainable: No Constitutional: Reports: no symptoms HEENT: Reports: no symptoms Cardiovascular: Reports: no symptoms Respiratory: Reports: no symptoms Gastrointestinal/Abdominal: Reports: no symptoms Genitourinary: Reports: no symptoms Neurologic/Psychiatric: Reports: no symptoms Subjective 58 YO M admitted with respiratory distress. Cover for Int Murray-Dr Lentz. [facility] Objective Last Vital Signs Date Time Temp Pulse Resp B/P (MAP) Pulse Ox O2 Delivery O2 Flow Rate FiO2 08/14/19 16:00 Venturi Mask 14.0 08/14/19 16:00 97.3 100 24 107/44 (65) 96 08/14/19 07:35 50 Laboratory Tests Test 08/14/19 03:14 08/14/19 04:00 08/14/19 08:26 White Blood Count 6.8 K/UL (4.8-10.8) Red Blood Count 4.03 M/UL (4.70-6.10) L Hemoglobin 12.3 G/DL (14.2-18.0) L Hematocrit 36.6 % (42.0-52.0) L Mean Corpuscular Volume 91 FL (80-99) Mean Corpuscular Hemoglobin 30.5 PG (27.0-31.0) Mean Corpuscular Hemoglobin Concent 33.6 G/DL (32.0-36.0) Red Cell Distribution Width 11.4 % (11.6-14.8) L Platelet Count 243 K/UL (150-450) Mean Platelet Volume 6.0 FL (6.5-10.1) L Neutrophils (%) (Auto) 76.7 % (45.0-75.0) H Lymphocytes (%) (Auto) 11.5 % (20.0-45.0) L Monocytes (%) (Auto) 9.2 % (1.0-10.0) Eosinophils (%) (Auto) 2.2 % (0.0-3.0) Basophils (%) (Auto) 0.3 % (0.0-2.0) Sodium Level 138 MMOL/L (136-145) Potassium Level 3.3 MMOL/L (3.5-5.1) L Chloride Level 102 MMOL/L (98-107) Carbon Dioxide Level 27 MMOL/L (21-32) Anion Gap 9 mmol/L (5-15) Blood Urea Nitrogen 15 mg/dL (7-18) Creatinine 0.8 MG/DL (0.55-1.30) Estimat Glomerular Filtration Rate > 60 mL/min (>60) Glucose Level 161 MG/DL (74-106) H Calcium Level 8.4 MG/DL (8.5-10.1) L Phosphorus Level 3.2 MG/DL (2.5-4.9) Magnesium Level 1.9 MG/DL (1.8-2.4) Total Bilirubin 0.9 MG/DL (0.2-1.0) Aspartate Amino Transf (AST/SGOT) 12 U/L (15-37) L Alanine Aminotransferase (ALT/SGPT) 19 U/L (12-78) Alkaline Phosphatase 37 U/L (46-116) L Troponin I 0.017 ng/mL (0.000-0.056) Pro-B-Type Natriuretic Peptide 537 pg/mL (0-125) H Total Protein 6.0 G/DL (6.4-8.2) L Albumin 2.5 G/DL (3.4-5.0) L Globulin 3.5 g/dL Albumin/Globulin Ratio 0.7 (1.0-2.7) L Urine Legionella Antigen Pending Arterial Blood pH 7.448 (7.350-7.450) Arterial Blood Partial Pressure CO2 37.4 mmHg (35.0-45.0) Arterial Blood Partial Pressure O2 58.2 mmHg (75.0-100.0) L Arterial Blood HCO3 25.3 mmol/L (22.0-26.0) Arterial Blood Oxygen Saturation 89.2 % (95-100) *L Arterial Blood Base Excess 1.4 (-2-2) Jason Test Positive Microbiology Date/Time Source Procedure Growth Status 08/12/19 13:30 Blood Blood Culture - Preliminary NO GROWTH AFTER 24 HOURS Resulted 08/12/19 13:15 Blood Blood Culture - Preliminary NO GROWTH AFTER 24 HOURS Resulted 08/12/19 11:30 Nasal Nares - Final Complete 08/12/19 11:30 Nasal Nares - Final Complete Intake and Output 08/13/19 08/14/19 18:59 06:59 Intake Total 1510 ml 110 ml Output Total 700 ml 700 ml Balance 810 ml -590 ml Intake Oral 240 ml IV Total 1270 ml 110 ml Output Urine Total 700 ml 700 ml # Voids 2 3 Objective PHYSICAL EXAMINATION: GENERAL: The patient is well-developed and well-nourished male, who is in moderate respiratory distress. HEENT: Eyes, pupils are equal and responsive to light and accommodation. Extraocular movements are intact. NECK: Supple without lymphadenopathy. CHEST: Decreased breath sounds in bilateral bases. Otherwise, without crackles or rales. CARDIOVASCULAR: Regular rate. S1, S2 normal without murmurs, rubs, or gallops. ABDOMINAL: Soft, nontender, and nondistended. Positive bowel sounds. No evidence of hepatosplenomegaly. Currently, no rebound or guarding noted. EXTREMITIES: Negative for clubbing, cyanosis, or edema. RECTAL: Not performed. GENITAL: Not performed. NEUROLOGIC: Cranial nerves II through XII are grossly intact without focal deficits. Motor strength is 5/5 bilaterally. Deep tendon reflexes are 2+, plantar. Assessment/Plan Assessment/Plan ASSESSMENT: This is a 58-year-old male: 1. Shortness of breath. 2. Respiratory distress. 3. Bilateral pneumonia. 4. Congestive heart failure. TREATMENT: 1. Shortness of breath/respiratory distress/bilateral pneumonia. Pulmonary consultation has been obtained with Dr. Tiffani Baker. The patient is admitted to the [facility] unit. The patient has been started empirically on vancomycin and cefepime. We will follow recommendations of Pulmonary. 2. Congestive heart failure. Cardiology consultation has been obtained with Dr. Jose Arambula. We will follow recommendation of Cardiology. An echocardiogram is pending. Kuldeep Márquez MD Aug 14, 2019 16:52
--- NOTE | 2019-08-14 17:00 | NUR ---
NURSE NOTES: Provided apple juice, per Dr Tor zhou to give juice at this time. Patient tolerated well. No coughing/aspiration noted. Daughter present at bedside. Will continue to monitor.
--- NOTE | 2019-08-14 19:16 | NUR ---
HAND-OFF: Report given to Juliet Barnhart RN. Patient remains stable. Endorsed plan of care.
--- NOTE | 2019-08-14 19:29 | NUR ---
HAND-OFF: Report given to Sheryl Mcginnis RN. Patient remains stable. Endorsed plan of care.
--- NOTE | 2019-08-14 19:30 | NUR ---
NURSE NOTES: Received patient from Digna Webster RN. patient is observed sleeping in bed, AO X4, Setswana speaking; no s/sx of pain noted at this time. patient is currently on Venturi mask: 55%, 14 L/min; tolerating well, saturation at 96%, no s/sx of respiratory distress noted at this time. threat monitoring analyst shows NSR with current heart rate of 91, no s/sx of acute cardiac distress noted. pt is currently NPO. urinal is at bedside. Right wrist 22 g IV site is patent and intact, asymptomatic, running fluids TKO. bed in lowest position and locked, siderails up X3, call light within reach. will continue to monitor.
[2019-08-14 20:00] VITALS: BP 120/89
--- NOTE | 2019-08-14 21:30 | Consultation ---
DATE OF CONSULTATION: 08/14/2019 CARDIOLOGY CONSULTATION This is a Cardiology consultation done as a coverage for Dr. Arambula. CONSULTING PHYSICIAN: Ai Rosario M.D. REASON FOR CONSULT: Shortness of breath. HISTORY OF PRESENT ILLNESS: History is obtained from the patient's son translating as the patient is Polish speaking. The patient is a 58-year-old man with progressively worsening dyspnea and nonproductive cough over the past few months, acutely worse over three to four days prior to admission. He had no chest pain, diaphoresis, or radiation of pain. He was brought to the emergency room by paramedics. He was found to have oxygen saturations in the low 80s, improved with face mask oxygen. His x-ray showed bilateral perihilar infiltrates versus edema. He is admitted for further treatment. MEDICATIONS: Currently azithromycin 250 mg daily, cefepime 2 g IV q.12 h., albuterol and ipratropium inhaler q.4 h., morphine p.r.n., and Zofran p.r.n. ALLERGIES: No known drug allergies. PAST MEDICAL HISTORY: As noted above. There is no previous history of hypertension, diabetes, hyperlipidemia, angina, or previous myocardial infarction. The patient has a history of coronary artery disease. PAST SURGICAL HISTORY: None. SOCIAL HISTORY: The patient denies any history of tobacco use, alcohol abuse, or drug use. 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 PHYSICAL EXAMINATION: VITAL SIGNS: Blood pressure is 107/44, pulse 94 and regular, respirations 24, afebrile. Oxygen saturation 96% on Venturimask oxygen. GENERAL: Alert, well-developed male, who is tachypneic on facemask oxygen. HEENT: Normocephalic and atraumatic. Pupils are equal, round, and reactive to light. Sclerae anicteric. Oral mucosa is moist. NECK: Supple. There is no jugular venous distention. LUNGS: Breath sounds are diminished bilaterally. No rales or wheezes. HEART: Tachycardic, regular S1, S2. No murmurs or S3. ABDOMEN: Soft, nontender. No palpable mass. EXTREMITIES: No cyanosis, clubbing, or edema. NEUROLOGIC: No focal motor deficits. LABORATORY AND DIAGNOSTIC DATA: Hemoglobin 12.3, hematocrit 36, and white blood count 6800. Potassium 3.3, BUN 15, and creatinine 0.8. Troponin 0.017. Natriuretic peptide 537. IMAGING STUDIES: Chest x-ray shows bilateral perihilar infiltrates, trace bilateral pleural effusions, right-sided pleural calcification. Chest CT shows extensive airspace disease bilaterally, mainly in the perihilar areas, extensive pleural calcification and thickening on the right, enlarged mediastinal lymph nodes. EKG shows sinus tachycardia, rate of 118 beats per minute, left atrial enlargement, normal axis and no ST-segment or T-wave changes. Echo preliminary report shows normal left ventricular size and function, EF 65%, mild left ventricular hypertrophy, moderate mitral regurgitation, moderate tricuspid regurgitation and severe pulmonary hypertension with peak right ventricular systolic pressure of 78 mmHg. ASSESSMENT AND RECOMMENDATIONS: The patient is a 58-year-old man who presents with a several-month history of nonproductive cough, progressively worsening dyspnea, and is noted to have severe pulmonary hypertension by echo as well as bilateral airspace disease and pleural disease on chest x-ray and CT. I suspect his dyspnea is mainly due to primary lung disease, possibly due to occupational exposure, interstitial lung disease. He may have some component of right heart failure. We would favor pulmonary evaluation for further treatment of his lung disease. We would try low-dose diuretic for possible right heart involvement. Ai Rosario M.D. DR: LILIA JOB#: [id number] CC:
[2019-08-15] VITALS: BP 117/78
[2019-08-15 04:00] VITALS: BP 107/76
[2019-08-15 05:45] LABS: HEMATOCRIT 35.1 % (42.0-52.0); HEMOGLOBIN 11.8 G/DL (14.2-18.0); MEAN CORPUSCULAR VOLUME 90 FL (80-99); PLATELET COUNT 248 K/UL (150-450); RED CELL DISTRIBUTION WIDTH 11.3 % (11.6-14.8); WHITE BLOOD COUNT 6.1 K/UL (4.8-10.8)
[2019-08-15 05:50] LABS: ANION GAP 6 mmol/L (5-15); BLOOD UREA NITROGEN 11 mg/dL (7-18); CALCIUM 8.5 MG/DL (8.5-10.1); CARBON DIOXIDE 31 MMOL/L (21-32); CHLORIDE 106 MMOL/L (98-107); CREATININE 0.7 MG/DL (0.55-1.30); POTASSIUM 3.7 MMOL/L (3.5-5.1); SODIUM 143 MMOL/L (136-145)
--- NOTE | 2019-08-15 07:00 | NUR ---
NURSE NOTES: Received report from Sheryl Mcginnis RN. Observed patient in bed, asleep, opens eyes spontaneously to verbal stimuli. On Venturi mask at 55% FiO2, 14L, saturating 97%. No acute respiratory distress noted. IV on right wrist intact and patent. Patient still NPO at this time. Denies pain/discomfort. Safety precautions left in place; bed locked, alarmed, and in lowest position. side rails up x3, and call light left within reach. Instructed to call for assistance, acknowledged understanding. Will continue plan of care and will continue to monitor.
--- NOTE | 2019-08-15 07:45 | NUR ---
HAND-OFF: Report given to Digna Webster RN. patient is in stable condition.
[2019-08-15 08:00] VITALS: BP 113/75
[2019-08-15] MEDS: Cefepime HCl 2 GM in D5W 110 ML IV SCH ×2 (08:12→20:42)
[2019-08-15] MEDS: Heparin 5000 units/ml inj SUBQ SCH ×2 (08:15→20:43)
--- NOTE | 2019-08-15 09:39 | Infectious Diseases Prog Note ---
Assessment/Plan Assessment/Plan 58 yo male who was sent to the ED from his PMD for cough and SOB. Respiratory failure Chronic lung dz, Pulm Edema vs PNA Now on facemask CTA 08/13/19 - Negative for evidence of acute pulmonary embolus or other acute thoracic vascular pathology Extensive bilateral pulmonary parenchymal airspace disease. This may indicate pneumonia or pulmonary edema. Extensive right-sided pleural thickening and calcification, likely on the basis of old inflammation Inf (-) No leukocytosis No Fever BNP 1548 - HF? Echo Pend PLAN - Start Azithromycin #3 QTc 465 - Continue Cefepeme #3 - 08/13/19 SP Vancomcyin #1 - Check Urine Strep and legionella Ag - f/u cultures - f/u check Quantiferon - Monitor CBC and Temps Thank you for this consult. [facility] will continue to follow the patient with you during this hospitalization. Subjective Allergies: Coded Allergies: No Known Allergies (Unverified , 08/12/19) Subjective Afebrile No Leukocytosis No on 14L via mask Objective Vital Signs Last 24 Hour Vital Signs Date Time Temp Pulse Resp B/P (MAP) Pulse Ox O2 Delivery O2 Flow Rate FiO2 08/15/19 08:24 90 08/15/19 08:00 97.9 89 27 113/75 (88) 97 08/15/19 08:00 Venturi Mask 14.0 08/15/19 04:00 81 08/15/19 04:00 98.0 82 20 107/76 (86) 96 08/15/19 04:00 Venturi Mask 14.0 08/15/19 00:00 97.9 95 20 117/78 (91) 98 08/15/19 00:00 Venturi Mask 14.0 08/15/19 00:00 88 08/14/19 20:46 98 Venturi Mask 14.0 50 08/14/19 20:00 Venturi Mask 14.0 08/14/19 20:00 91 08/14/19 20:00 98.1 89 20 120/89 (99) 96 08/14/19 16:00 Venturi Mask 14.0 08/14/19 16:00 97.3 100 24 107/44 (65) 96 08/14/19 15:24 94 08/14/19 12:00 97.7 98 19 123/81 (95) 95 08/14/19 12:00 Venturi Mask 14.0 08/14/19 11:40 97 Height (Feet): 5 Height (Inches): 8.00 Weight (Pounds): 151 Objective Gen: NAD On facemask HEENT: NCAT, MMM, EOMI LUNGS: Coarse B/L CARDS: RRR, S1, S2 ABD: Soft, NT, ND Microbiology Date/Time Source Procedure Growth Status 08/12/19 13:30 Blood Blood Culture - Preliminary NO GROWTH AFTER 48 HOURS Resulted 08/12/19 13:15 Blood Blood Culture - Preliminary NO GROWTH AFTER 48 HOURS Resulted 08/13/19 11:30 Sputum Gram Stain - Final Resulted 08/13/19 11:30 Sputum Sputum Culture Pending Resulted 08/12/19 11:30 Nasal Nares - Final Complete 08/12/19 11:30 Nasal Nares - Final Complete 08/13/19 11:30 Indwelling Cath Urine Culture - Preliminary NO GROWTH Resulted Laboratory Tests Test 08/15/19 03:53 White Blood Count 6.1 K/UL (4.8-10.8) Red Blood Count 3.90 M/UL (4.70-6.10) L Hemoglobin 11.8 G/DL (14.2-18.0) L Hematocrit 35.1 % (42.0-52.0) L Mean Corpuscular Volume 90 FL (80-99) Mean Corpuscular Hemoglobin 30.3 PG (27.0-31.0) Mean Corpuscular Hemoglobin Concent 33.7 G/DL (32.0-36.0) Red Cell Distribution Width 11.3 % (11.6-14.8) L Platelet Count 248 K/UL (150-450) Mean Platelet Volume 6.0 FL (6.5-10.1) L Neutrophils (%) (Auto) % (45.0-75.0) Lymphocytes (%) (Auto) % (20.0-45.0) Monocytes (%) (Auto) % (1.0-10.0) Eosinophils (%) (Auto) % (0.0-3.0) Basophils (%) (Auto) % (0.0-2.0) Differential Total Cells Counted 100 Neutrophils % (Manual) 57 % (45-75) Lymphocytes % (Manual) 31 % (20-45) Monocytes % (Manual) 4 % (1-10) Eosinophils % (Manual) 8 % (0-3) H Basophils % (Manual) 0 % (0-2) Band Neutrophils 0 % (0-8) Platelet Estimate Adequate Platelet Morphology Normal Red Blood Cell Morphology Normal Sodium Level 143 MMOL/L (136-145) Potassium Level 3.7 MMOL/L (3.5-5.1) Chloride Level 106 MMOL/L (98-107) Carbon Dioxide Level 31 MMOL/L (21-32) Anion Gap 6 mmol/L (5-15) Blood Urea Nitrogen 11 mg/dL (7-18) Creatinine 0.7 MG/DL (0.55-1.30) Estimat Glomerular Filtration Rate > 60 mL/min (>60) Glucose Level 113 MG/DL (74-106) H Calcium Level 8.5 MG/DL (8.5-10.1) Current Medications Medications (Trade) Dose Ordered Sig/Jessie Route PRN Reason Start Time Stop Time Status Last Admin Dose Admin Acetaminophen (Tylenol) 650 mg Q4H PRN ORAL fever 08/12/19 15:45 09/11/19 15:44 08/15/19 00:29 Albuterol/ Ipratropium (Albuterol/ Ipratropium) 3 ml Q4H PRN HHN Shortness of Breath 08/12/19 15:45 08/17/19 15:44 08/13/19 23:24 Azithromycin 250 mg/Dextrose 275 ml @ 275 mls/hr Q24HRS IV 08/14/19 15:00 08/20/19 15:59 08/14/19 15:17 Cefepime HCl 2 gm/ Dextrose 110 ml @ 220 mls/hr EVERY 12 HOURS IV 08/12/19 21:00 08/19/19 20:59 08/15/19 08:12 Heparin Sodium (Porcine) (Heparin 5000 units/ml) 5,000 units EVERY 12 HOURS SUBQ 08/12/19 21:00 09/11/19 20:59 08/15/19 08:15 Morphine Sulfate (Morphine Sulfate) 2 mg Q4H PRN IVP Moderate Pain (Pain Scale 4-6) 08/12/19 15:45 08/19/19 15:44 Nitroglycerin (Ntg) 0.4 mg Q5M PRN SL Prn Chest Pain 08/12/19 15:45 09/11/19 15:44 Ondansetron HCl (Zofran) 4 mg Q6H PRN IVP Nausea & Vomiting 08/12/19 15:45 09/11/19 15:44 Polyethylene Glycol (Miralax) 17 gm DAILYPRN PRN ORAL Constipation 08/12/19 15:45 09/11/19 15:44 Temazepam (Restoril) 15 mg HSPRN PRN ORAL Insomnia 08/12/19 15:45 08/19/19 15:44 08/14/19 01:40 David Horowitz MD Aug 15, 2019 09:39
--- NOTE | 2019-08-15 11:36 | NUR ---
NURSE NOTES: Attempted to wean patient off Venturi Mask with RT Josefa. Patient currently at FiO2 of 55%, 14L, FiO2 was decreased to 40%, patient's saturation went down to 89%. Placed patient back up to 50% FiO2, 12L. Patient's saturation remains between 94-95%. Denies SOB. Will continue to monitor patient.
[2019-08-15 12:00] VITALS: BP 104/71
--- NOTE | 2019-08-15 13:42 | NUR ---
NURSE NOTES: Dr Martinez present at bedside, placed patient on 6L via NC, saturating 94%. ABG taken by RT Stacia, results given to Dr Martinez. New orders noted, will carry out and will continue to monitor patient.
[2019-08-15] MEDS ORDERED: guaiFENesin 100mg/5ml Liq ud ORAL PRN (14:00)
--- NOTE | 2019-08-15 14:02 | Consultation ---
Consult Note Assessment/Plan DICT # [id number] Isidro Martinez MD Aug 15, 2019 14:02
[2019-08-15] MEDS: Azithromycin 250 MG in D5W 275 ML IV SCH (15:08)
--- NOTE | 2019-08-15 15:41 | Internal Med Progress Note ---
Subjective Date of Service: Aug 15, 2019 Physician Name Kuldeep Márquez Attending Physician eMliton Lentz MD Current Medications Medications (Trade) Dose Ordered Sig/Jessie Route PRN Reason Start Time Stop Time Status Last Admin Dose Admin Acetaminophen (Tylenol) 650 mg Q4H PRN ORAL fever 08/12/19 15:45 09/11/19 15:44 08/15/19 00:29 Albuterol/ Ipratropium (Albuterol/ Ipratropium) 3 ml Q4H PRN HHN Shortness of Breath 08/12/19 15:45 08/17/19 15:44 08/13/19 23:24 Azithromycin 250 mg/Dextrose 275 ml @ 275 mls/hr Q24HRS IV 08/14/19 15:00 08/20/19 15:59 08/15/19 15:08 Cefepime HCl 2 gm/ Dextrose 110 ml @ 220 mls/hr EVERY 12 HOURS IV 08/12/19 21:00 08/19/19 20:59 08/15/19 08:12 Guaifenesin (Mucinex ER) 600 mg TWICE A DAY ORAL 08/15/19 18:00 09/14/19 17:59 Guaifenesin (Robitussin) 100 mg Q4H PRN ORAL For Cough 08/15/19 14:00 09/14/19 13:59 Heparin Sodium (Porcine) (Heparin 5000 units/ml) 5,000 units EVERY 12 HOURS SUBQ 08/12/19 21:00 09/11/19 20:59 08/15/19 08:15 Morphine Sulfate (Morphine Sulfate) 2 mg Q4H PRN IVP Moderate Pain (Pain Scale 4-6) 08/12/19 15:45 08/19/19 15:44 Nitroglycerin (Ntg) 0.4 mg Q5M PRN SL Prn Chest Pain 08/12/19 15:45 09/11/19 15:44 Ondansetron HCl (Zofran) 4 mg Q6H PRN IVP Nausea & Vomiting 08/12/19 15:45 09/11/19 15:44 Polyethylene Glycol (Miralax) 17 gm DAILYPRN PRN ORAL Constipation 08/12/19 15:45 09/11/19 15:44 Temazepam (Restoril) 15 mg HSPRN PRN ORAL Insomnia 08/12/19 15:45 08/19/19 15:44 08/14/19 01:40 Allergies: Coded Allergies: No Known Allergies (Unverified , 08/12/19) ROS Limited/Unobtainable: Yes Subjective 58 YO M admitted with respiratory distress. Cover for Int Med-Dr Lentz. [facility] Objective Last Vital Signs Date Time Temp Pulse Resp B/P (MAP) Pulse Ox O2 Delivery O2 Flow Rate FiO2 08/15/19 12:00 98.4 87 25 104/71 (82) 96 08/15/19 12:00 Venturi Mask 12.0 08/15/19 07:00 50 Laboratory Tests Test 08/15/19 03:53 08/15/19 04:00 08/15/19 13:27 White Blood Count 6.1 K/UL (4.8-10.8) Red Blood Count 3.90 M/UL (4.70-6.10) L Hemoglobin 11.8 G/DL (14.2-18.0) L Hematocrit 35.1 % (42.0-52.0) L Mean Corpuscular Volume 90 FL (80-99) Mean Corpuscular Hemoglobin 30.3 PG (27.0-31.0) Mean Corpuscular Hemoglobin Concent 33.7 G/DL (32.0-36.0) Red Cell Distribution Width 11.3 % (11.6-14.8) L Platelet Count 248 K/UL (150-450) Mean Platelet Volume 6.0 FL (6.5-10.1) L Neutrophils (%) (Auto) % (45.0-75.0) Lymphocytes (%) (Auto) % (20.0-45.0) Monocytes (%) (Auto) % (1.0-10.0) Eosinophils (%) (Auto) % (0.0-3.0) Basophils (%) (Auto) % (0.0-2.0) Differential Total Cells Counted 100 Neutrophils % (Manual) 57 % (45-75) Lymphocytes % (Manual) 31 % (20-45) Monocytes % (Manual) 4 % (1-10) Eosinophils % (Manual) 8 % (0-3) H Basophils % (Manual) 0 % (0-2) Band Neutrophils 0 % (0-8) Platelet Estimate Adequate Platelet Morphology Normal Red Blood Cell Morphology Normal Sodium Level 143 MMOL/L (136-145) Potassium Level 3.7 MMOL/L (3.5-5.1) Chloride Level 106 MMOL/L (98-107) Carbon Dioxide Level 31 MMOL/L (21-32) Anion Gap 6 mmol/L (5-15) Blood Urea Nitrogen 11 mg/dL (7-18) Creatinine 0.7 MG/DL (0.55-1.30) Estimat Glomerular Filtration Rate > 60 mL/min (>60) Glucose Level 113 MG/DL (74-106) H Calcium Level 8.5 MG/DL (8.5-10.1) Erythrocyte Sedimentation Rate 28 MM/HR (0-20) H C-Reactive Protein, Quantitative 11.9 mg/dL (0.00-0.90) H Arterial Blood pH 7.435 (7.350-7.450) Arterial Blood Partial Pressure CO2 46.5 mmHg (35.0-45.0) H Arterial Blood Partial Pressure O2 75.4 mmHg (75.0-100.0) Arterial Blood HCO3 30.5 mmol/L (22.0-26.0) H Arterial Blood Oxygen Saturation 94.3 % (95-100) L Arterial Blood Base Excess 5.5 (-2-2) H Jason Test Positive Microbiology Date/Time Source Procedure Growth Status 08/13/19 11:30 Sputum Gram Stain - Final Resulted 08/13/19 11:30 Sputum Sputum Culture Pending Resulted 08/13/19 11:30 Indwelling Cath Urine Culture - Preliminary NO GROWTH Resulted Intake and Output 08/14/19 08/15/19 19:00 07:00 Intake Total 785 ml 520 ml Output Total 600 ml 750 ml Balance 185 ml -230 ml Intake Oral 400 ml 300 ml IV Total 385 ml 220 ml Output Urine Total 600 ml 750 ml # Voids 2 Objective PHYSICAL EXAMINATION: GENERAL: The patient is well-developed and well-nourished male, who is in moderate respiratory distress. HEENT: Eyes, pupils are equal and responsive to light and accommodation. Extraocular movements are intact. NECK: Supple without lymphadenopathy. CHEST: venturi mask; Decreased breath sounds in bilateral bases. Otherwise, without crackles or rales. CARDIOVASCULAR: Regular rate. S1, S2 normal without murmurs, rubs, or gallops. ABDOMINAL: Soft, nontender, and nondistended. Positive bowel sounds. No evidence of hepatosplenomegaly. Currently, no rebound or guarding noted. EXTREMITIES: Negative for clubbing, cyanosis, or edema. RECTAL: Not performed. GENITAL: Not performed. NEUROLOGIC: Cranial nerves II through XII are grossly intact without focal deficits. Motor strength is 5/5 bilaterally. Deep tendon reflexes are 2+, plantar. Assessment/Plan Assessment/Plan ASSESSMENT: This is a 58-year-old male: 1. Shortness of breath. 2. Respiratory distress. 3. Bilateral pneumonia. 4. Congestive heart failure. TREATMENT: 1. Shortness of breath/respiratory distress/bilateral pneumonia. Pulmonary consultation has been obtained with Dr. Tiffani Baker. The patient is admitted to the [facility] unit. The patient has been started empirically on vancomycin and cefepime. We will follow recommendations of Pulmonary. Tolerating venturi mask. 2. Congestive heart failure. Cardiology consultation has been obtained with Dr. Jose Arambula. We will follow recommendation of Cardiology. An echocardiogram is pending. Kuldeep Márquez MD Aug 15, 2019 15:41
[2019-08-15 16:00] VITALS: BP 94/60
--- NOTE | 2019-08-15 16:25 | Cardiology Progress Note ---
Assessment/Plan Problem List: (1) Pleural plaque (2) Pulmonary hypertension (3) Dyspnea (4) Pneumonia Status: stable, progressing Status Narrative Pt w / bilateral infiltrates on XR, CT, possible pneumonia in addition to chronic lung disease ( ? interstitial lung disease, pleural plaques, possible asbestos exposure) ECHO w/ severe pulm hypertension, likely WHO group 2, due to chronic lung disease. LV function normal. CT without evidence for pulmonary embolus He appears to be improving w/ respiratory rx, suppl o2 and iv antibiotics. Assessment/Plan continue bronchodilator rx, suppl o2, and iv antibiotics. Monitor fluid status - keep i/o even to sl negative. Pulmonary evaluation w/ Dr. Martinez in progress. Subjective ROS Limited/Unobtainable: No Subjective Cardiology for Dr. Arambula Mr Styles is less dyspneic. Cough has improved. He remains on supplemental o2. Objective Last 24 Hour Vital Signs Date Time Temp Pulse Resp B/P (MAP) Pulse Ox O2 Delivery O2 Flow Rate FiO2 08/15/19 16:00 Nasal Cannula 6.0 08/15/19 12:00 98.4 87 25 104/71 (82) 96 08/15/19 12:00 Venturi Mask 12.0 08/15/19 11:40 90 08/15/19 08:24 90 08/15/19 08:00 97.9 89 27 113/75 (88) 97 08/15/19 08:00 Venturi Mask 14.0 08/15/19 07:00 94 Venturi Mask 12.0 50 08/15/19 04:00 81 08/15/19 04:00 98.0 82 20 107/76 (86) 96 08/15/19 04:00 Venturi Mask 14.0 08/15/19 00:00 97.9 95 20 117/78 (91) 98 08/15/19 00:00 Venturi Mask 14.0 08/15/19 00:00 88 08/14/19 20:46 98 Venturi Mask 14.0 50 08/14/19 20:00 Venturi Mask 14.0 08/14/19 20:00 91 08/14/19 20:00 98.1 89 20 120/89 (99) 96 General Appearance: WD/WN, no apparent distress, other - on nc 02 EENT: PERRL/EOMI Neck: supple, no JVD Rhythm: NSR Cardiovascular: normal rate, regular rhythm, systolic murmur - ii/vi JANICE along RSB Respiratory/Chest: lungs clear Abdomen: non tender, soft Extremities: no swelling Intake and Output 08/14/19 08/15/19 19:00 07:00 Intake Total 785 ml 520 ml Output Total 600 ml 750 ml Balance 185 ml -230 ml Intake Oral 400 ml 300 ml IV Total 385 ml 220 ml Output Urine Total 600 ml 750 ml # Voids 2 Laboratory Tests Test 08/15/19 03:53 08/15/19 04:00 08/15/19 13:27 White Blood Count 6.1 K/UL (4.8-10.8) Red Blood Count 3.90 M/UL (4.70-6.10) L Hemoglobin 11.8 G/DL (14.2-18.0) L Hematocrit 35.1 % (42.0-52.0) L Mean Corpuscular Volume 90 FL (80-99) Mean Corpuscular Hemoglobin 30.3 PG (27.0-31.0) Mean Corpuscular Hemoglobin Concent 33.7 G/DL (32.0-36.0) Red Cell Distribution Width 11.3 % (11.6-14.8) L Platelet Count 248 K/UL (150-450) Mean Platelet Volume 6.0 FL (6.5-10.1) L Neutrophils (%) (Auto) % (45.0-75.0) Lymphocytes (%) (Auto) % (20.0-45.0) Monocytes (%) (Auto) % (1.0-10.0) Eosinophils (%) (Auto) % (0.0-3.0) Basophils (%) (Auto) % (0.0-2.0) Differential Total Cells Counted 100 Neutrophils % (Manual) 57 % (45-75) Lymphocytes % (Manual) 31 % (20-45) Monocytes % (Manual) 4 % (1-10) Eosinophils % (Manual) 8 % (0-3) H Basophils % (Manual) 0 % (0-2) Band Neutrophils 0 % (0-8) Platelet Estimate Adequate Platelet Morphology Normal Red Blood Cell Morphology Normal Sodium Level 143 MMOL/L (136-145) Potassium Level 3.7 MMOL/L (3.5-5.1) Chloride Level 106 MMOL/L (98-107) Carbon Dioxide Level 31 MMOL/L (21-32) Anion Gap 6 mmol/L (5-15) Blood Urea Nitrogen 11 mg/dL (7-18) Creatinine 0.7 MG/DL (0.55-1.30) Estimat Glomerular Filtration Rate > 60 mL/min (>60) Glucose Level 113 MG/DL (74-106) H Calcium Level 8.5 MG/DL (8.5-10.1) Erythrocyte Sedimentation Rate 28 MM/HR (0-20) H C-Reactive Protein, Quantitative 11.9 mg/dL (0.00-0.90) H Arterial Blood pH 7.435 (7.350-7.450) Arterial Blood Partial Pressure CO2 46.5 mmHg (35.0-45.0) H Arterial Blood Partial Pressure O2 75.4 mmHg (75.0-100.0) Arterial Blood HCO3 30.5 mmol/L (22.0-26.0) H Arterial Blood Oxygen Saturation 94.3 % (95-100) L Arterial Blood Base Excess 5.5 (-2-2) H Jason Test Positive Microbiology Date/Time Source Procedure Growth Status 08/13/19 11:30 Sputum Gram Stain - Final Resulted 08/13/19 11:30 Sputum Sputum Culture Pending Resulted 08/13/19 11:30 Indwelling Cath Urine Culture - Preliminary NO GROWTH Resulted Ai Rosario MD Aug 15, 2019 16:25
[2019-08-15] MEDS ORDERED: NS 275ml ONE (17:47)
[2019-08-15] MEDS ORDERED: guaiFENesin ER 600mg tab ORAL SCH (18:00)
--- NOTE | 2019-08-15 19:02 | NUR ---
HAND-OFF: Report given to Sheryl Mcginnis RN. Patient remains in stable condition; saturating 99% on 6L via NC. Endorsed plan of care.
--- NOTE | 2019-08-15 19:10 | NUR ---
NURSE NOTES: Received patient from Digna Webster RN. patient is observed sleeping in bed, AO X4, Estonian speaking, no s/sx of pain noted at this time. patient is on 6 L O2 via NC, tolerating well, saturating at 99% at this time. no s/sx of respiratory distress noted at this time. traffic monitor specialist shows NSR at this time with current heart rate of 86. no s/sx of acute cardiac distress noted. R wrist 22 g IV site patent and intact, asymptomatic. urinal at bedside. bed in lowest position and locked, siderails up X2, call light within reach. will continue to monitor.
[2019-08-15 20:00] VITALS: BP 108/73
--- NOTE | 2019-08-15 21:30 | Consultation ---
DATE OF CONSULTATION: 08/15/2019 PULMONARY CONSULTATION CONSULTING PHYSICIAN: Isidro Martinez M.D. REFERRING PHYSICIAN: Meliton Lentz M.D. REASON FOR CONSULTATION: Hypoxemia. HISTORY OF PRESENT ILLNESS: The patient is a 58-year-old male, lifelong nonsmoker without any significant past medical history, who initially started noticing generalized myalgias and URI symptoms 10 days ago in [place]. He had some body aches, nonproductive cough, low-grade fevers, chills, generalized malaise. He went to his primary medical doctor in [facility] where an antimicrobial agent was prescribed. He is not sure what it is, but he then flew to the [facility]. Subsequently, symptoms progressed. Ultimately, he came to the ER on the at [place]. He initially had an elevated D-dimer, so a CT angio was done, which was negative for PE, but showed extensive airspace disease bilaterally with pleural changes on the right side. Of note, the patient had a thoracentesis 40 years ago for TB. He also has enlarged mediastinal lymph nodes including a 2.7 cm paratracheal node. The rest of his study was nondiagnostic. He has had no white count since presentation and his gas exchange has been fairly stable except for hypoxemia. He has been seen by the Infectious Disease Service and is currently on azithromycin, cefepime for treatment of community-acquired pneumonia. He had a dose of vancomycin on the . QuantiFERON Gold is pending. Urine strep and Legionella antigens are pending as well. Cultures have been no growth so far. He has been requiring 40% high-flow oxygen and Venturi mask and this has been difficult to wean nasal cannula. The sats are in the low 90s on 4 L. He notes nonproductive cough with shortness of breath. Denies wheezing, fevers, chills. Denies headaches or dizziness. Denies nausea, vomiting, diarrhea, constipation, or other complaints. 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 PAST SURGICAL HISTORY: None. ALLERGIES: No known drug allergies. MEDICATIONS: Prior to admission, medications none. 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 He lives between [facility] and [facility]. He is with three grown children. No tobacco or drug use. He does drink occasionally. FAMILY HISTORY: Noncontributory. REVIEW OF SYSTEMS: Negative other than history of present illness. PHYSICAL EXAMINATION: VITAL SIGNS: Temperature 97.9, pulse 89, blood pressure 113/75, respiratory rate 27, saturating 90% on a Venturi mask. GENERAL: He is a well-developed and well-nourished male, in no acute distress. Awake, alert, and oriented x3. HEENT: Normocephalic and atraumatic. Oropharynx is clear with moist mucous membranes. NECK: Supple without lymphadenopathy or JVD. CHEST: Scattered coarse breath sounds. Fair air movement. No rales. HEART: Regular rate and rhythm. Prominent P2. ABDOMEN: Soft, nontender, and nondistended. EXTREMITIES: No cyanosis, clubbing or edema. ANCILLARY DATA: White count 6.1, hemoglobin 11.8, and platelet count 248. ABG 7.435/46/75/30/94. D-dimer 1.07. Sodium 142, potassium 3.7, chloride 106, bicarbonate 31, BUN 11, creatinine 0.7, glucose 113, calcium 8.5. BNP 537. Total protein 6. Albumin 2.5. Troponin 0.17. Urinalysis, 2+ protein, 3+ ketones. Urine Legionella antibody pending. Blood culture x2 from the is no growth. Sputum culture and Gram stain is pending. Urine culture is no growth. A 08/12/2019 chest x-ray shows bilateral perihilar infiltrates. A 08/12/2019 CTA of the chest negative for PE, extensive bilateral parenchymal opacities noted, extensive right-sided pleural thickening and calcification, cardiomegaly, somewhat ectatic right main pulmonary artery. Mediastinal lymphadenopathy. A 08/12/2019 echocardiogram, LVEF 65%. Mild LVH. Focal aortic sclerosis, thickened mitral valve leaflets. Pulmonic valve not well visualized. IVC is normal in size. Grade 1 diastolic dysfunction. Moderate TR. RV systolic pressure of 78. ASSESSMENT: The patient is a previously healthy 58-year-old male with a history of tuberculosis as a child, presenting with respiratory illness with bilateral infiltrates, mediastinal lymphadenopathy, and pulmonary hypertension. I suspect the patient had a URI/pneumonitis with possible superimposed bacterial pneumonia. I do need to review the images myself. I have only seen the report of the CT. For the time being, I think it is reasonable to continue current antimicrobial therapy and attempt to wean the patient off of oxygen. I will add some Mucinex to help mobilize his secretions and would continue as needed bronchodilators for the time being. PROBLEM LIST: 1. Bilateral parenchymal infiltrates, likely secondary to community-acquired pneumonia. 2. Likely antecedent URI/pneumonitis. 3. Mediastinal adenopathy, reactive versus underlying lymphoproliferative disorder. 4. Pleural changes, likely related to prior tuberculosis with pleural involvement greater than 40 years ago. 5. Pulmonary hypertension. 6. CHF with mild diastolic dysfunction and valvular heart disease. TREATMENT PLAN: 1. Repeat ABG. 2. Repeat chest x-ray. 3. I will review CT imaging myself with the Radiology. 4. Optimize pulmonary hygiene/mobilize as tolerated. 5. Mucinex and p.r.n. Robitussin. 6. P.r.n. bronchodilators. 7. Continue antibiotics (azithromycin and cefepime) per ID, follow up cultures. 8. Procalcitonin and respiratory panel PCR sent to [facility]. 9. Monitor volumes and renal function. 10. DVT prophylaxis, heparin subcutaneous. 11. Cautious p.o. with aspiration precautions. 12. The patient should have a repeat echo when acute issues have resolved. If persistent pulmonary hypertension, can be worked up further at that point. 13. The patient will also need to have parenchymal changes and lymphadenopathy followed to resolution. If persistent lymphadenopathy in the future, we can consider endobronchial ultrasound/FNA. 14. The patient is a Full Code. Dr. Lentz, thank you for allowing me to assist in the care of your patient. If I may be of any assistance, please do not hesitate to ask. Isidro Martinez M.D. DR: ANAY JOB#: [id number] CC:
[2019-08-15] MEDS ORDERED: Nitroglycerin Subl 0.4mg tab SL PRN (21:45)
--- NOTE | 2019-08-15 21:45 | NUR ---
TRANSFER TO FLOOR: Patient transferred to telemetry 2E room 209-1, per MD order. Report given to KIRSTEN Mueller. Belongings reviewed with RN at bedside and remain at bedside with patient. Medications given to RN. Attempted to inform family of transfer, however, family did not answer call. unable to leave message d/t full voicemail.
[2019-08-15] MEDS ORDERED: Miralax 17gm pkt ORAL PRN (22:00)
[2019-08-15] MEDS ORDERED: Morphine Sulfate 2mg/ml Inj(IV/IM USE ONLY) IVP PRN (22:00)
[2019-08-15] MEDS ORDERED: Albuterol/Ipratropium 3ml neb HHN PRN (22:00)
[2019-08-16] VITALS: BP 124/76
--- NOTE | 2019-08-16 00:11 | NUR ---
NURSE NOTES: AWAKE ON ROUNDS, DENIES PAIN, NO SIGNS AND SYMPTOMS OF DISTRESS.
[2019-08-16 04:00] VITALS: BP 121/80
--- NOTE | 2019-08-16 06:06 | NUR ---
NURSE NOTES: RESTED WELL, NO SIGNIFICANT CHANGE OF CONDITION NOTED THROUGHOUT THE NIGHT. SAFETY MAINTAINED. NAD.
[2019-08-16 07:01] LABS: BASOPHILS % (AUTO) 1.1 % (0.0-2.0); EOSINOPHILS % (AUTO) 5.7 % (0.0-3.0); HEMATOCRIT 34.8 % (42.0-52.0); HEMOGLOBIN 11.6 G/DL (14.2-18.0); LYMPHOCYTES % (AUTO) 19.5 % (20.0-45.0); MEAN CORPUSCULAR VOLUME 91 FL (80-99); NEUTROPHILS % (AUTO) 63.6 % (45.0-75.0); PLATELET COUNT 278 K/UL (150-450); RED BLOOD COUNT 3.85 M/UL (4.70-6.10); RED CELL DISTRIBUTION WIDTH 11.3 % (11.6-14.8); WHITE BLOOD COUNT 6.3 K/UL (4.8-10.8)
--- NOTE | 2019-08-16 07:13 | NUR ---
HAND-OFF: Report given to KIRSTEN QUICK.
--- NOTE | 2019-08-16 07:18 | NUR ---
NURSE NOTES: Received report from KIRSTEN Roque. Patient in bed resting, no active s/s cardiac, respiratory distress noticed at this time. Patient on 6L oxygen via NC. AOx4, SR with HR 91. IV on right hand 22G, asymptomatic, patent, intact. Bed in lowest position, side rails upx2, call light within reach. Will continue to monitor.
[2019-08-16 07:30] LABS: ANION GAP 8 mmol/L (5-15); BLOOD UREA NITROGEN 15 mg/dL (7-18); CALCIUM 8.4 MG/DL (8.5-10.1); CARBON DIOXIDE 29 MMOL/L (21-32); CHLORIDE 104 MMOL/L (98-107); CREATININE 0.7 MG/DL (0.55-1.30); POTASSIUM 3.8 MMOL/L (3.5-5.1); SODIUM 141 MMOL/L (136-145)
[2019-08-16 08:00] VITALS: BP 113/69
[2019-08-16] MEDS: guaiFENesin ER 600mg tab ORAL SCH ×2 (08:09→17:49)
[2019-08-16] MEDS: Cefepime HCl 2 GM in D5W 110 ML IV SCH ×2 (08:10→20:20)
[2019-08-16] MEDS: Heparin 5000 units/ml inj SUBQ SCH ×2 (08:13→20:22)
--- NOTE | 2019-08-16 08:30 | NUR ---
NURSE NOTES: Dr. Austin made aware patient requesting antacid. Per Dr. Austin, Mylanta 30ml QID PO. Order noted, entered, carried out. Will continue to monitor.
--- NOTE | 2019-08-16 09:20 | NUR ---
NURSE NOTES: Dr. Austin at the bedside, covering for Dr. Baker today, titrate oxygen to 4L if patient able to tolerate.
--- NOTE | 2019-08-16 10:04 | Infectious Diseases Prog Note ---
Assessment/Plan Assessment/Plan 58 yo male who was sent to the ED from his PMD for cough and SOB. Respiratory failure Chronic lung dz, Pulm Edema vs PNA Now on facemask CTA 08/13/19 - Negative for evidence of acute pulmonary embolus or other acute thoracic vascular pathology Extensive bilateral pulmonary parenchymal airspace disease. This may indicate pneumonia or pulmonary edema. Extensive right-sided pleural thickening and calcification, likely on the basis of old inflammation Inf (-) No leukocytosis No Fever BNP 1548 - HF? Echo Pend PLAN - Start Azithromycin #4 QTc 465 - Continue Cefepeme #4 - 08/13/19 SP Vancomcyin #1 - Check Urine Strep and legionella Ag - f/u cultures - f/u Pulm recs - f/u check Quantiferon - Monitor CBC and Temps Thank you for this consult. [facility] will continue to follow the patient with you during this hospitalization. Subjective Allergies: Coded Allergies: No Known Allergies (Unverified , 08/12/19) Subjective Afebrile No Leukocytosis No on 6L NC Objective Vital Signs Last 24 Hour Vital Signs Date Time Temp Pulse Resp B/P (MAP) Pulse Ox O2 Delivery O2 Flow Rate FiO2 08/16/19 08:12 93 Nasal Cannula 6.0 44 08/16/19 08:00 97.7 99 18 113/69 (84) 94 08/16/19 04:00 97.9 91 18 121/80 (94) 94 08/16/19 04:00 91 08/16/19 00:00 97.1 84 20 124/76 (92) 99 08/16/19 00:00 84 08/15/19 20:00 97.3 86 20 108/73 (85) 97 08/15/19 20:00 86 08/15/19 20:00 Nasal Cannula 6.0 08/15/19 19:00 96 Venturi Mask 12.0 50 08/15/19 16:00 Nasal Cannula 6.0 08/15/19 16:00 97.7 102 24 94/60 (71) 93 08/15/19 15:24 92 08/15/19 12:00 98.4 87 25 104/71 (82) 96 08/15/19 12:00 Venturi Mask 12.0 08/15/19 11:40 90 Height (Feet): 5 Height (Inches): 8.00 Weight (Pounds): 157 Objective Gen: NAD On NC HEENT: NCAT, MMM, EOMI LUNGS: Coarse B/L CARDS: RRR, S1, S2 ABD: Soft, NT, ND Microbiology Date/Time Source Procedure Growth Status 08/13/19 11:30 Sputum Gram Stain - Final Complete 08/13/19 11:30 Sputum Sputum Culture - Final NORMAL UPPER RESPIRATORY JOSEPH PRESENT Complete 08/13/19 11:30 Indwelling Cath Urine Culture - Preliminary NO GROWTH AFTER 24 HOURS Resulted Laboratory Tests Test 08/15/19 13:27 08/16/19 05:52 Arterial Blood pH 7.435 (7.350-7.450) Arterial Blood Partial Pressure CO2 46.5 mmHg (35.0-45.0) H Arterial Blood Partial Pressure O2 75.4 mmHg (75.0-100.0) Arterial Blood HCO3 30.5 mmol/L (22.0-26.0) H Arterial Blood Oxygen Saturation 94.3 % (95-100) L Arterial Blood Base Excess 5.5 (-2-2) H Jason Test Positive White Blood Count 6.3 K/UL (4.8-10.8) Red Blood Count 3.85 M/UL (4.70-6.10) L Hemoglobin 11.6 G/DL (14.2-18.0) L Hematocrit 34.8 % (42.0-52.0) L Mean Corpuscular Volume 91 FL (80-99) Mean Corpuscular Hemoglobin 30.2 PG (27.0-31.0) Mean Corpuscular Hemoglobin Concent 33.4 G/DL (32.0-36.0) Red Cell Distribution Width 11.3 % (11.6-14.8) L Platelet Count 278 K/UL (150-450) Mean Platelet Volume 6.0 FL (6.5-10.1) L Neutrophils (%) (Auto) 63.6 % (45.0-75.0) Lymphocytes (%) (Auto) 19.5 % (20.0-45.0) L Monocytes (%) (Auto) 10.0 % (1.0-10.0) Eosinophils (%) (Auto) 5.7 % (0.0-3.0) H Basophils (%) (Auto) 1.1 % (0.0-2.0) Sodium Level 141 MMOL/L (136-145) Potassium Level 3.8 MMOL/L (3.5-5.1) Chloride Level 104 MMOL/L (98-107) Carbon Dioxide Level 29 MMOL/L (21-32) Anion Gap 8 mmol/L (5-15) Blood Urea Nitrogen 15 mg/dL (7-18) Creatinine 0.7 MG/DL (0.55-1.30) Estimat Glomerular Filtration Rate > 60 mL/min (>60) Glucose Level 118 MG/DL (74-106) H Calcium Level 8.4 MG/DL (8.5-10.1) L TB Test (T-Spot) Pending TB Test Nil Control (T-Spot) Pending TB Test Panel A (T-Spot) Pending TB Test Panel B (T-Spot) Pending TB Test Positive Control (T-Spot) Pending Current Medications Medications (Trade) Dose Ordered Sig/Jessie Route PRN Reason Start Time Stop Time Status Last Admin Dose Admin Acetaminophen (Tylenol) 650 mg Q4H PRN ORAL T>100.5 08/15/19 23:45 09/11/19 15:44 Al Hydroxide/Mg Hydroxide (Mylanta) 30 ml FOUR TIMES A DAY ORAL 08/16/19 09:00 09/15/19 08:59 08/16/19 09:19 Albuterol/ Ipratropium (Albuterol/ Ipratropium) 3 ml Q4H PRN HHN Shortness of Breath 08/15/19 22:00 08/17/19 21:59 Azithromycin 250 mg/Dextrose 275 ml @ 275 mls/hr Q24HRS IV 08/16/19 15:00 08/20/19 15:59 Cefepime HCl 2 gm/ Dextrose 110 ml @ 220 mls/hr EVERY 12 HOURS IV 08/16/19 09:00 08/19/19 20:59 08/16/19 08:10 Guaifenesin (Mucinex ER) 600 mg TWICE A DAY ORAL 08/16/19 09:00 09/14/19 17:59 08/16/19 08:09 Guaifenesin (Robitussin) 100 mg Q4H PRN ORAL For Cough 08/15/19 22:00 09/14/19 13:59 Heparin Sodium (Porcine) (Heparin 5000 units/ml) 5,000 units EVERY 12 HOURS SUBQ 08/16/19 09:00 09/11/19 20:59 08/16/19 08:13 Morphine Sulfate (Morphine Sulfate) 2 mg Q4H PRN IVP Moderate Pain (Pain Scale 4-6) 08/15/19 22:00 08/19/19 21:59 Nitroglycerin (Ntg) 0.4 mg Q5MIN X 3 DOSES PRN SL Prn Chest Pain 08/15/19 21:45 09/14/19 21:44 Ondansetron HCl (Zofran) 4 mg Q6H PRN IVP Nausea & Vomiting 08/15/19 21:45 09/11/19 15:44 Polyethylene Glycol (Miralax) 17 gm DAILYPRN PRN ORAL Constipation 08/15/19 22:00 09/14/19 21:59 Temazepam (Restoril) 15 mg HSPRN PRN ORAL Insomnia 08/16/19 21:00 08/19/19 20:59 David Horowitz MD Aug 16, 2019 10:04
[2019-08-16 12:00] VITALS: BP 117/78
--- NOTE | 2019-08-16 12:00 | Pulmonology Progress Note ---
Assessment/Plan Problems: (1) Pneumonia (2) Pulmonary hypertension (3) Dyspnea (4) Pleural plaque Assessment/Plan ASSESSMENT: The patient is a previously healthy 58-year-old male with a history of tuberculosis as a child, presenting with respiratory illness with bilateral infiltrates, mediastinal lymphadenopathy, and pulmonary hypertension. I suspect the patient had a URI/pneumonitis with possible superimposed bacterial pneumonia. I do need to review the images myself. I have only seen the report of the CT. For the time being, I think it is reasonable to continue current antimicrobial therapy and attempt to wean the patient off of oxygen. I will add some Mucinex to help mobilize his secretions and would continue as needed bronchodilators for the time being. PROBLEM LIST: 1. Bilateral parenchymal infiltrates, likely secondary to community-acquired pneumonia. 2. Likely antecedent URI/pneumonitis. 3. Mediastinal adenopathy, reactive versus underlying lymphoproliferative disorder. 4. Pleural changes, likely related to prior tuberculosis with pleural involvement greater than 40 years ago. 5. Pulmonary hypertension. 6. CHF with mild diastolic dysfunction and valvular heart disease. TREATMENT PLAN: 1. ABG 2. CXR 3. I will review CT imaging myself 4. Optimize pulmonary hygiene/mobilize as tolerated. 5. Mucinex and p.r.n. Robitussin. 6. P.r.n. bronchodilators. 7. Continue antibiotics (azithromycin and cefepime) per ID, follow up cultures. 8. Procalcitonin and respiratory panel PCR sent to [facility] (pending) 9. Monitor volumes and renal function. 10. DVT prophylaxis, heparin subcutaneous. 11. Cautious p.o. with aspiration precautions. 12. The patient should have a repeat echo when acute issues have resolved. If persistent pulmonary hypertension, can be worked up further at that point. 13. The patient will also need to have parenchymal changes and lymphadenopathy followed to resolution. If persistent lymphadenopathy in the future, we can consider endobronchial ultrasound/FNA. D/W daughter, will repeat CT in 4 weeks @ [facility] (HRCT/prone and supine) 14. The patient is a Full Code. Subjective Allergies: Coded Allergies: No Known Allergies (Unverified , 08/12/19) Subjective AFVSS now on 4-6 L bouchra PO Less cough + SOB no FC no CP Objective Last 24 Hour Vital Signs Date Time Temp Pulse Resp B/P (MAP) Pulse Ox O2 Delivery O2 Flow Rate FiO2 08/16/19 09:00 Nasal Cannula 6.0 08/16/19 08:12 93 Nasal Cannula 6.0 44 08/16/19 08:00 97.7 99 18 113/69 (84) 94 08/16/19 08:00 96 08/16/19 04:00 97.9 91 18 121/80 (94) 94 08/16/19 04:00 91 08/16/19 00:00 97.1 84 20 124/76 (92) 99 08/16/19 00:00 84 08/15/19 20:00 97.3 86 20 108/73 (85) 97 08/15/19 20:00 86 08/15/19 20:00 Nasal Cannula 6.0 08/15/19 19:00 96 Venturi Mask 12.0 50 08/15/19 16:00 Nasal Cannula 6.0 08/15/19 16:00 97.7 102 24 94/60 (71) 93 08/15/19 15:24 92 08/15/19 12:00 98.4 87 25 104/71 (82) 96 08/15/19 12:00 Venturi Mask 12.0 Intake and Output 08/15/19 08/16/19 19:00 07:00 Intake Total 885 ml 710 ml Output Total 700 ml Balance 185 ml 710 ml Intake Oral 500 ml 600 ml IV Total 385 ml 110 ml Output Urine Total 700 ml # Voids 2 General Appearance: WD/WN, no acute distress HEENT: normocephalic, atraumatic, anicteric, mucous membranes moist Respiratory/Chest: rhonchi Cardiovascular: normal peripheral pulses, normal rate, regular rhythm Abdomen: normal bowel sounds, soft, non tender, no organomegaly, non distended , no mass Extremities: no cyanosis, no clubbing, no edema Laboratory Tests 08/15/19 13:27: Arterial Blood pH 7.435, Arterial Blood Partial Pressure CO2 46.5H, Arterial Blood Partial Pressure O2 75.4, Arterial Blood HCO3 30.5H, Arterial Blood Oxygen Saturation 94.3L, Arterial Blood Base Excess 5.5H, Jason Test Positive 08/16/19 05:52: White Blood Count 6.3, Red Blood Count 3.85L, Hemoglobin 11.6L, Hematocrit 34.8L , Mean Corpuscular Volume 91, Mean Corpuscular Hemoglobin 30.2, Mean Corpuscular Hemoglobin Concent 33.4, Red Cell Distribution Width 11.3L, Platelet Count 278, Mean Platelet Volume 6.0L, Neutrophils (%) (Auto) 63.6, Lymphocytes (%) (Auto) 19.5L, Monocytes (%) (Auto) 10.0, Eosinophils (%) (Auto) 5.7H, Basophils (%) (Auto) 1.1, Sodium Level 141, Potassium Level 3.8, Chloride Level 104, Carbon Dioxide Level 29, Anion Gap 8, Blood Urea Nitrogen 15, Creatinine 0.7, Estimat Glomerular Filtration Rate > 60, Glucose Level 118H, Calcium Level 8.4L, TB Test (T-Spot) [Pending], TB Test Nil Control (T-Spot) [ Pending], TB Test Panel A (T-Spot) [Pending], TB Test Panel B (T-Spot) [Pending] , TB Test Positive Control (T-Spot) [Pending] Current Medications Medications (Trade) Dose Ordered Sig/Jessie Route PRN Reason Start Time Stop Time Status Last Admin Dose Admin Acetaminophen (Tylenol) 650 mg Q4H PRN ORAL T>100.5 08/15/19 23:45 09/11/19 15:44 Al Hydroxide/Mg Hydroxide (Mylanta) 30 ml FOUR TIMES A DAY ORAL 08/16/19 09:00 09/15/19 08:59 08/16/19 09:19 Albuterol/ Ipratropium (Albuterol/ Ipratropium) 3 ml Q4H PRN HHN Shortness of Breath 08/15/19 22:00 08/17/19 21:59 Azithromycin 250 mg/Dextrose 275 ml @ 275 mls/hr Q24HRS IV 08/16/19 15:00 08/20/19 15:59 Cefepime HCl 2 gm/ Dextrose 110 ml @ 220 mls/hr EVERY 12 HOURS IV 08/16/19 09:00 08/19/19 20:59 08/16/19 08:10 Guaifenesin (Mucinex ER) 600 mg TWICE A DAY ORAL 08/16/19 09:00 09/14/19 17:59 08/16/19 08:09 Guaifenesin (Robitussin) 100 mg Q4H PRN ORAL For Cough 08/15/19 22:00 09/14/19 13:59 Heparin Sodium (Porcine) (Heparin 5000 units/ml) 5,000 units EVERY 12 HOURS SUBQ 08/16/19 09:00 09/11/19 20:59 08/16/19 08:13 Morphine Sulfate (Morphine Sulfate) 2 mg Q4H PRN IVP Moderate Pain (Pain Scale 4-6) 08/15/19 22:00 08/19/19 21:59 Nitroglycerin (Ntg) 0.4 mg Q5MIN X 3 DOSES PRN SL Prn Chest Pain 08/15/19 21:45 09/14/19 21:44 Ondansetron HCl (Zofran) 4 mg Q6H PRN IVP Nausea & Vomiting 08/15/19 21:45 09/11/19 15:44 Polyethylene Glycol (Miralax) 17 gm DAILYPRN PRN ORAL Constipation 08/15/19 22:00 09/14/19 21:59 Temazepam (Restoril) 15 mg HSPRN PRN ORAL Insomnia 08/16/19 21:00 08/19/19 20:59 Isidro Martinez MD Aug 16, 2019 12:00
--- NOTE | 2019-08-16 12:18 | NUR ---
CASE MANAGEMENT: REVIEW 08/14/19 SI: PNA . PULMONARY HYPERTENSION 99.0 99 20 110/73 94% VENTURI MASK 8L FiO2 50 K+ 3.3 BG 161 CA+ 8.4 H/H 12.3/36.6 ABG: pO2 58.2 O2 SAT 89.2 IS:IV CEFEPIME BID IV AZITHROMYCIN Q24HR [id number] HEPARIN SQ BID MYLANTA PO QID MUCINEX PO BID \: 2E TELE UNIT CASE MANAGEMENT: REVIEW 08/15/19 SI: PNA . PULMONARY HYPERTENSION 97.9 89 27 113/75 97% VENTURI MASK 14L FiO2 50 H/H 11.8/35.1 ABG: pCO2 46.5 HCO3 30.5 O2 SAT 94.3 IS:IV CEFEPIME BID IV AZITHROMYCIN Q24HR 2 OF 7BAGS HEPARIN SQ BID MYLANTA PO QID MUCINEX PO BID \: 2E TELE UNIT CASE MANAGEMENT: REVIEW 08/16/19 SI: PNA . PULMONARY HTN 97.7 99 18 113/69 94% NC 6L FiO2 44 H/H 11.6/34.8 CA+ 8.4 IS:IV CEFEPIME BIB HEPARIN SQ BID MYLANTA PO QID MUCINEX PO BID \: 2E TELE UNIT PLAN: TITRATE OXYGEN FAIL WEAN TRAILS WILL CONT MONITOR TITRATION
--- NOTE | 2019-08-16 13:09 | Internal Med Progress Note ---
Subjective Date of Service: Aug 16, 2019 Physician Name Kuldeep Márquez Attending Physician Meliton Lentz MD Current Medications Medications (Trade) Dose Ordered Sig/Jessie Route PRN Reason Start Time Stop Time Status Last Admin Dose Admin Acetaminophen (Tylenol) 650 mg Q4H PRN ORAL T>100.5 08/15/19 23:45 09/11/19 15:44 Al Hydroxide/Mg Hydroxide (Mylanta) 30 ml FOUR TIMES A DAY ORAL 08/16/19 09:00 09/15/19 08:59 08/16/19 12:58 Albuterol/ Ipratropium (Albuterol/ Ipratropium) 3 ml Q4H PRN HHN Shortness of Breath 08/15/19 22:00 08/17/19 21:59 Azithromycin 250 mg/Dextrose 275 ml @ 275 mls/hr Q24HRS IV 08/16/19 15:00 08/20/19 15:59 Cefepime HCl 2 gm/ Dextrose 110 ml @ 220 mls/hr EVERY 12 HOURS IV 08/16/19 09:00 08/19/19 20:59 08/16/19 08:10 Guaifenesin (Mucinex ER) 600 mg TWICE A DAY ORAL 08/16/19 09:00 09/14/19 17:59 08/16/19 08:09 Guaifenesin (Robitussin) 100 mg Q4H PRN ORAL For Cough 08/15/19 22:00 09/14/19 13:59 Heparin Sodium (Porcine) (Heparin 5000 units/ml) 5,000 units EVERY 12 HOURS SUBQ 08/16/19 09:00 09/11/19 20:59 08/16/19 08:13 Morphine Sulfate (Morphine Sulfate) 2 mg Q4H PRN IVP Moderate Pain (Pain Scale 4-6) 08/15/19 22:00 08/19/19 21:59 Nitroglycerin (Ntg) 0.4 mg Q5MIN X 3 DOSES PRN SL Prn Chest Pain 08/15/19 21:45 09/14/19 21:44 Ondansetron HCl (Zofran) 4 mg Q6H PRN IVP Nausea & Vomiting 08/15/19 21:45 09/11/19 15:44 Polyethylene Glycol (Miralax) 17 gm DAILYPRN PRN ORAL Constipation 08/15/19 22:00 09/14/19 21:59 Temazepam (Restoril) 15 mg HSPRN PRN ORAL Insomnia 08/16/19 21:00 08/19/19 20:59 Allergies: Coded Allergies: No Known Allergies (Unverified , 08/12/19) ROS Limited/Unobtainable: No Constitutional: Reports: no symptoms HEENT: Reports: no symptoms Cardiovascular: Reports: no symptoms Respiratory: Reports: no symptoms Gastrointestinal/Abdominal: Reports: no symptoms Genitourinary: Reports: no symptoms Neurologic/Psychiatric: Reports: no symptoms Subjective 58 YO M admitted with respiratory distress. Cover for Int Murray-Dr Lentz. Objective Last Vital Signs Date Time Temp Pulse Resp B/P (MAP) Pulse Ox O2 Delivery O2 Flow Rate FiO2 08/16/19 12:00 99.1 94 18 117/78 (91) 94 08/16/19 09:00 Nasal Cannula 6.0 08/16/19 08:12 44 Laboratory Tests Test 08/15/19 13:27 08/16/19 05:52 Arterial Blood pH 7.435 (7.350-7.450) Arterial Blood Partial Pressure CO2 46.5 mmHg (35.0-45.0) H Arterial Blood Partial Pressure O2 75.4 mmHg (75.0-100.0) Arterial Blood HCO3 30.5 mmol/L (22.0-26.0) H Arterial Blood Oxygen Saturation 94.3 % (95-100) L Arterial Blood Base Excess 5.5 (-2-2) H Jason Test Positive White Blood Count 6.3 K/UL (4.8-10.8) Red Blood Count 3.85 M/UL (4.70-6.10) L Hemoglobin 11.6 G/DL (14.2-18.0) L Hematocrit 34.8 % (42.0-52.0) L Mean Corpuscular Volume 91 FL (80-99) Mean Corpuscular Hemoglobin 30.2 PG (27.0-31.0) Mean Corpuscular Hemoglobin Concent 33.4 G/DL (32.0-36.0) Red Cell Distribution Width 11.3 % (11.6-14.8) L Platelet Count 278 K/UL (150-450) Mean Platelet Volume 6.0 FL (6.5-10.1) L Neutrophils (%) (Auto) 63.6 % (45.0-75.0) Lymphocytes (%) (Auto) 19.5 % (20.0-45.0) L Monocytes (%) (Auto) 10.0 % (1.0-10.0) Eosinophils (%) (Auto) 5.7 % (0.0-3.0) H Basophils (%) (Auto) 1.1 % (0.0-2.0) Sodium Level 141 MMOL/L (136-145) Potassium Level 3.8 MMOL/L (3.5-5.1) Chloride Level 104 MMOL/L (98-107) Carbon Dioxide Level 29 MMOL/L (21-32) Anion Gap 8 mmol/L (5-15) Blood Urea Nitrogen 15 mg/dL (7-18) Creatinine 0.7 MG/DL (0.55-1.30) Estimat Glomerular Filtration Rate > 60 mL/min (>60) Glucose Level 118 MG/DL (74-106) H Calcium Level 8.4 MG/DL (8.5-10.1) L TB Test (T-Spot) Pending TB Test Nil Control (T-Spot) Pending TB Test Panel A (T-Spot) Pending TB Test Panel B (T-Spot) Pending TB Test Positive Control (T-Spot) Pending Intake and Output 08/15/19 08/16/19 19:00 07:00 Intake Total 885 ml 710 ml Output Total 700 ml Balance 185 ml 710 ml Intake Oral 500 ml 600 ml IV Total 385 ml 110 ml Output Urine Total 700 ml # Voids 2 Objective PHYSICAL EXAMINATION: GENERAL: The patient is well-developed and well-nourished male, who is in moderate respiratory distress. HEENT: Eyes, pupils are equal and responsive to light and accommodation. Extraocular movements are intact. NECK: Supple without lymphadenopathy. CHEST: venturi mask; Decreased breath sounds in bilateral bases. Otherwise, without crackles or rales. CARDIOVASCULAR: Regular rate. S1, S2 normal without murmurs, rubs, or gallops. ABDOMINAL: Soft, nontender, and nondistended. Positive bowel sounds. No evidence of hepatosplenomegaly. Currently, no rebound or guarding noted. EXTREMITIES: Negative for clubbing, cyanosis, or edema. RECTAL: Not performed. GENITAL: Not performed. NEUROLOGIC: Cranial nerves II through XII are grossly intact without focal deficits. Motor strength is 5/5 bilaterally. Deep tendon reflexes are 2+, plantar. Assessment/Plan Assessment/Plan ASSESSMENT: This is a 58-year-old male: 1. Shortness of breath. 2. Respiratory distress. 3. Bilateral pneumonia. 4. Congestive heart failure. TREATMENT: 1. Shortness of breath/respiratory distress/bilateral pneumonia. Pulmonary consultation has been obtained with Dr. Tiffani Baker. Abx=azithromycin and cefepime. We will follow recommendations of Pulmonary. Tolerating nasal canula. 2. Congestive heart failure. Cardiology consultation has been obtained with Dr. Jose Arambula. We will follow recommendation of Cardiology. An echocardiogram is pending. Kuldeep Márquez MD Aug 16, 2019 13:09
--- NOTE | 2019-08-16 13:40 | NUR ---
NURSE NOTES: Patient unable to tolerate 4L NC, O2 sat decreased to 85%, RT called and NC oxygen increased to 6L. MD made aware.
--- NOTE | 2019-08-16 14:07 | Diagnostic Imaging Report ---
Indication: Dyspnea Comparison: 08/12/2019 A single view chest radiograph was obtained. Findings: Persistent interstitial and alveolar densities demonstrated within the central aspects of the lungs bilaterally. Heart remains enlarged. There is dense calcification of the pleura at the right lung base. IMPRESSION: Similar findings. Suspected CHF moderate to severe in degree
[2019-08-16] MEDS ORDERED: Tubing IV Secondary IV ONE (14:10)
[2019-08-16] MEDS: Azithromycin 250 MG in D5W 275 ML IV SCH (14:16)
--- NOTE | 2019-08-16 14:53 | NUR ---
RADIOLOGY DEPT., CHEST X-RAY DONE.-P.DYE
--- NOTE | 2019-08-16 15:54 | Diagnostic Imaging Report ---
Indication: Dyspnea Comparison: 08/15/2019 A single view chest radiograph was obtained. Findings: Bilateral parenchymal opacities are again demonstrated. In general there is a no change. Heart remains enlarged. IMPRESSION: No change from the prior day
[2019-08-16 16:00] VITALS: BP 115/73
[2019-08-16] MEDS: guaiFENesin 100mg/5ml Liq ud ORAL PRN ×2 (16:22→20:23)
--- NOTE | 2019-08-16 18:35 | NUR ---
NURSE NOTES: Ulysses, Son, would like to speak to licensed social worker for billing. Tele [phone], will call and inform licensed social worker when available.
--- NOTE | 2019-08-16 19:24 | NUR ---
HAND-OFF: Report given to KIRSTEN Pond.
--- NOTE | 2019-08-16 19:25 | NUR ---
NURSE NOTES: Received report from Ariella CURTIS. Pt was sitting in the bed AO x4 calm and comfortable. director digital is on. Denies any pain or discomfort. Family member is at bedside. Rails up x3, locked bed, call light next to the pt. Will continue to follow the plan of care.
[2019-08-16 20:00] VITALS: BP 103/69
[2019-08-17] VITALS: BP 102/63
[2019-08-17] MEDS: guaiFENesin 100mg/5ml Liq ud ORAL PRN ×4 (02:34→18:49)
--- NOTE | 2019-08-17 06:58 | NUR ---
NURSE NOTES: Received report from KIRSTEN Pond. Patient in bed resting, no active s/s cardiac, respiratory distress noticed at this time. Patient AOx4, on 4L oxygen at this time. Patient denies pain but coughing. IV on left FA 22G, asymptomatic, patent, intact. Bed in lowest position, side rails upx2, call light within reach. Will continue to monitor.
--- NOTE | 2019-08-17 07:01 | NUR ---
HAND-OFF: Report given to Ariella CURTIS.
[2019-08-17 07:11] LABS: BASOPHILS % (AUTO) 0.7 % (0.0-2.0); HEMATOCRIT 34.5 % (42.0-52.0); HEMOGLOBIN 11.6 G/DL (14.2-18.0); LYMPHOCYTES % (AUTO) 18.9 % (20.0-45.0); MEAN CORPUSCULAR VOLUME 90 FL (80-99); MONOCYTES % (AUTO) 10.6 % (1.0-10.0); NEUTROPHILS % (AUTO) 61.7 % (45.0-75.0); PLATELET COUNT 300 K/UL (150-450); RED BLOOD COUNT 3.83 M/UL (4.70-6.10); RED CELL DISTRIBUTION WIDTH 11.3 % (11.6-14.8); WHITE BLOOD COUNT 6.4 K/UL (4.8-10.8)
[2019-08-17 07:22] LABS: ANION GAP 6 mmol/L (5-15); BLOOD UREA NITROGEN 13 mg/dL (7-18); CALCIUM 8.2 MG/DL (8.5-10.1); CARBON DIOXIDE 31 MMOL/L (21-32); CHLORIDE 105 MMOL/L (98-107); CREATININE 0.7 MG/DL (0.55-1.30); POTASSIUM 3.8 MMOL/L (3.5-5.1); SODIUM 142 MMOL/L (136-145)
[2019-08-17 08:00] VITALS: BP 123/70
[2019-08-17] MEDS: guaiFENesin ER 600mg tab ORAL SCH ×2 (08:43→18:49)
[2019-08-17] MEDS: Heparin 5000 units/ml inj SUBQ SCH (08:45)
[2019-08-17] MEDS: Cefepime HCl 2 GM in D5W 110 ML IV SCH (08:46)
--- NOTE | 2019-08-17 09:59 | NUR ---
CASE MANAGEMENT: REVIEW 08/17/19 HX: TB SI: PNA BILATERAL . PULMONARY HTN . CHRONIC LUNG DISEASE . PLEURAL PLAQUES . CHF 97.7 95 20 102/63 93% NC 4L FiO2 44 H/H 11.6/34.5 CA+ 8.2 BG 138 IS:IV CEFEPIME BID IV ZITHROMAX Q24HR X 5 BAGS HEPARIN SQ BID MYLANTA PO QID MUCINEX PO BID ROBITUSSIN PO Q4HR \: 2E TELE UNIT PLAN: TITRATE OXYGEN FAIL WEAN TRAILS WILL CONT MONITOR TITRATION TB LABS PENDING- QUANTIFERON/TSPOT MEDIASTINAL LYMPH NODE
--- NOTE | 2019-08-17 10:12 | Infectious Diseases Prog Note ---
Assessment/Plan Assessment/Plan 58 yo male who was sent to the ED from his PMD for cough and SOB. Respiratory failure Chronic lung dz, Pulm Edema vs PNA Now on facemask CTA 08/13/19 - Negative for evidence of acute pulmonary embolus or other acute thoracic vascular pathology Extensive bilateral pulmonary parenchymal airspace disease. This may indicate pneumonia or pulmonary edema. Extensive right-sided pleural thickening and calcification, likely on the basis of old inflammation Inf (-) No leukocytosis No Fever BNP 1548 - HF? Echo Pend PLAN - Azithromycin #5/10 QTc 465 - Continue Cefepeme #5/10 On D/C patient can be switch to PO levofloxacin to finish a 10 day course (End date 08/22/19) - 08/13/19 SP Vancomcyin #1 - Check Urine Strep and legionella Ag - f/u Pulm recs - f/u check Quantiferon - Monitor CBC and Temps Thank you for this consult. [facility] will continue to follow the patient with you during this hospitalization. Subjective Allergies: Coded Allergies: No Known Allergies (Unverified , 08/12/19) Subjective Afebrile No Leukocytosis No on 4L NC Objective Vital Signs Last 24 Hour Vital Signs Date Time Temp Pulse Resp B/P (MAP) Pulse Ox O2 Delivery O2 Flow Rate FiO2 08/17/19 04:00 90 08/17/19 00:00 90 08/17/19 00:00 97.7 95 20 102/63 (76) 93 08/16/19 21:00 Nasal Cannula 4.0 08/16/19 20:06 97 Nasal Cannula 4.0 36 08/16/19 20:06 89 18 97 Nasal Cannula 4.0 36 08/16/19 20:00 85 08/16/19 20:00 97.0 95 20 103/69 (80) 97 08/16/19 16:00 98.2 89 18 115/73 (87) 98 08/16/19 16:00 88 08/16/19 12:00 99.1 94 18 117/78 (91) 94 08/16/19 12:00 93 Height (Feet): 5 Height (Inches): 8.00 Weight (Pounds): 165 Objective Gen: NAD On 4L NC HEENT: NCAT, MMM, EOMI LUNGS: Coarse B/L CARDS: RRR, S1, S2 ABD: Soft, NT, ND Laboratory Tests Test 08/16/19 14:19 08/17/19 04:45 Arterial Blood pH 7.450 (7.350-7.450) Arterial Blood Partial Pressure CO2 44.2 mmHg (35.0-45.0) Arterial Blood Partial Pressure O2 85.4 mmHg (75.0-100.0) Arterial Blood HCO3 30.0 mmol/L (22.0-26.0) H Arterial Blood Oxygen Saturation 94.6 % (95-100) L Arterial Blood Base Excess 5.3 (-2-2) H Jason Test Positive White Blood Count 6.4 K/UL (4.8-10.8) Red Blood Count 3.83 M/UL (4.70-6.10) L Hemoglobin 11.6 G/DL (14.2-18.0) L Hematocrit 34.5 % (42.0-52.0) L Mean Corpuscular Volume 90 FL (80-99) Mean Corpuscular Hemoglobin 30.3 PG (27.0-31.0) Mean Corpuscular Hemoglobin Concent 33.6 G/DL (32.0-36.0) Red Cell Distribution Width 11.3 % (11.6-14.8) L Platelet Count 300 K/UL (150-450) Mean Platelet Volume 5.8 FL (6.5-10.1) L Neutrophils (%) (Auto) 61.7 % (45.0-75.0) Lymphocytes (%) (Auto) 18.9 % (20.0-45.0) L Monocytes (%) (Auto) 10.6 % (1.0-10.0) H Eosinophils (%) (Auto) 8.0 % (0.0-3.0) H Basophils (%) (Auto) 0.7 % (0.0-2.0) Sodium Level 142 MMOL/L (136-145) Potassium Level 3.8 MMOL/L (3.5-5.1) Chloride Level 105 MMOL/L (98-107) Carbon Dioxide Level 31 MMOL/L (21-32) Anion Gap 6 mmol/L (5-15) Blood Urea Nitrogen 13 mg/dL (7-18) Creatinine 0.7 MG/DL (0.55-1.30) Estimat Glomerular Filtration Rate > 60 mL/min (>60) Glucose Level 138 MG/DL (74-106) H Calcium Level 8.2 MG/DL (8.5-10.1) L Current Medications Medications (Trade) Dose Ordered Sig/Jessie Route PRN Reason Start Time Stop Time Status Last Admin Dose Admin Acetaminophen (Tylenol) 650 mg Q4H PRN ORAL T>100.5 08/15/19 23:45 09/11/19 15:44 Al Hydroxide/Mg Hydroxide (Mylanta) 30 ml FOUR TIMES A DAY ORAL 08/16/19 09:00 09/15/19 08:59 08/17/19 08:43 Albuterol/ Ipratropium (Albuterol/ Ipratropium) 3 ml Q4H PRN HHN Shortness of Breath 08/15/19 22:00 08/17/19 21:59 Azithromycin 250 mg/Dextrose 275 ml @ 275 mls/hr Q24HRS IV 08/16/19 15:00 08/20/19 15:59 08/16/19 14:16 Cefepime HCl 2 gm/ Dextrose 110 ml @ 220 mls/hr EVERY 12 HOURS IV 08/16/19 09:00 08/19/19 20:59 08/17/19 08:46 Guaifenesin (Mucinex ER) 600 mg TWICE A DAY ORAL 08/16/19 09:00 09/14/19 17:59 08/17/19 08:43 Guaifenesin (Robitussin) 100 mg Q4H PRN ORAL For Cough 08/15/19 22:00 09/14/19 13:59 08/17/19 08:43 Heparin Sodium (Porcine) (Heparin 5000 units/ml) 5,000 units EVERY 12 HOURS SUBQ 08/16/19 09:00 09/11/19 20:59 08/17/19 08:45 Morphine Sulfate (Morphine Sulfate) 2 mg Q4H PRN IVP Moderate Pain (Pain Scale 4-6) 08/15/19 22:00 08/19/19 21:59 Nitroglycerin (Ntg) 0.4 mg Q5MIN X 3 DOSES PRN SL Prn Chest Pain 08/15/19 21:45 09/14/19 21:44 Ondansetron HCl (Zofran) 4 mg Q6H PRN IVP Nausea & Vomiting 08/15/19 21:45 09/11/19 15:44 Polyethylene Glycol (Miralax) 17 gm DAILYPRN PRN ORAL Constipation 08/15/19 22:00 09/14/19 21:59 Temazepam (Restoril) 15 mg HSPRN PRN ORAL Insomnia 08/16/19 21:00 08/19/19 20:59 David Horowitz MD Aug 17, 2019 10:12
--- NOTE | 2019-08-17 11:23 | NUR ---
NURSE NOTES: Called Admitting 2148 for Son's request regard billing. Per Admitting will contact DavUlysses.
[2019-08-17 12:00] VITALS: BP 116/84
--- NOTE | 2019-08-17 12:19 | Cardiology Progress Note ---
Assessment/Plan Assessment/Plan 1. Bilateral parenchymal infiltrates, likely secondary to community-acquired pneumonia. 2. Mediastinal adenopathy, reactive versus underlying lymphoproliferative disorder. 3. Pulmonary hypertension. 78 mmhg per echo 6. MR ekg noted bnp not sig elevated likely majority of sx related to pulm infection keep on pulm rxn ct no pe no dvt telel sinus Subjective Cardiovascular: Reports: chest pain - with cough only , palpitations - with coughign only ; Denies: lightheadedness Respiratory: Reports: cough, shortness of breath; Denies: sputum Gastrointestinal/Abdominal: Denies: abdominal pain Genitourinary: Denies: burning Subjective better overall sicne admission Objective Last 24 Hour Vital Signs Date Time Temp Pulse Resp B/P (MAP) Pulse Ox O2 Delivery O2 Flow Rate FiO2 08/17/19 09:00 Nasal Cannula 4.0 08/17/19 08:00 97.0 91 19 123/70 (87) 94 08/17/19 08:00 97 08/17/19 04:00 90 08/17/19 00:00 90 08/17/19 00:00 97.7 95 20 102/63 (76) 93 08/16/19 21:00 Nasal Cannula 4.0 08/16/19 20:06 97 Nasal Cannula 4.0 36 08/16/19 20:06 89 18 97 Nasal Cannula 4.0 36 08/16/19 20:00 85 08/16/19 20:00 97.0 95 20 103/69 (80) 97 08/16/19 16:00 98.2 89 18 115/73 (87) 98 08/16/19 16:00 88 General Appearance: no apparent distress, alert Neck: supple Cardiovascular: normal rate, systolic murmur Respiratory/Chest: crackles/rales - righ tbase Abdomen: normal bowel sounds, non tender Extremities: no swelling Intake and Output 08/16/19 08/17/19 19:00 07:00 Intake Total 600 ml 480 ml Output Total 850 ml Balance 600 ml -370 ml Intake Oral 600 ml 480 ml Output Urine Total 850 ml # Voids 2 Laboratory Tests Test 08/16/19 14:19 08/17/19 04:45 Arterial Blood pH 7.450 (7.350-7.450) Arterial Blood Partial Pressure CO2 44.2 mmHg (35.0-45.0) Arterial Blood Partial Pressure O2 85.4 mmHg (75.0-100.0) Arterial Blood HCO3 30.0 mmol/L (22.0-26.0) H Arterial Blood Oxygen Saturation 94.6 % (95-100) L Arterial Blood Base Excess 5.3 (-2-2) H Jason Test Positive White Blood Count 6.4 K/UL (4.8-10.8) Red Blood Count 3.83 M/UL (4.70-6.10) L Hemoglobin 11.6 G/DL (14.2-18.0) L Hematocrit 34.5 % (42.0-52.0) L Mean Corpuscular Volume 90 FL (80-99) Mean Corpuscular Hemoglobin 30.3 PG (27.0-31.0) Mean Corpuscular Hemoglobin Concent 33.6 G/DL (32.0-36.0) Red Cell Distribution Width 11.3 % (11.6-14.8) L Platelet Count 300 K/UL (150-450) Mean Platelet Volume 5.8 FL (6.5-10.1) L Neutrophils (%) (Auto) 61.7 % (45.0-75.0) Lymphocytes (%) (Auto) 18.9 % (20.0-45.0) L Monocytes (%) (Auto) 10.6 % (1.0-10.0) H Eosinophils (%) (Auto) 8.0 % (0.0-3.0) H Basophils (%) (Auto) 0.7 % (0.0-2.0) Sodium Level 142 MMOL/L (136-145) Potassium Level 3.8 MMOL/L (3.5-5.1) Chloride Level 105 MMOL/L (98-107) Carbon Dioxide Level 31 MMOL/L (21-32) Anion Gap 6 mmol/L (5-15) Blood Urea Nitrogen 13 mg/dL (7-18) Creatinine 0.7 MG/DL (0.55-1.30) Estimat Glomerular Filtration Rate > 60 mL/min (>60) Glucose Level 138 MG/DL (74-106) H Calcium Level 8.2 MG/DL (8.5-10.1) L Jose Arambula MD Aug 17, 2019 12:19
--- NOTE | 2019-08-17 13:34 | Internal Med Progress Note ---
Subjective Physician Name Meliton Lentz Attending Physician Meliton Lentz MD Current Medications Medications (Trade) Dose Ordered Sig/Jessie Route PRN Reason Start Time Stop Time Status Last Admin Dose Admin Acetaminophen (Tylenol) 650 mg Q4H PRN ORAL T>100.5 08/15/19 23:45 09/11/19 15:44 Al Hydroxide/Mg Hydroxide (Mylanta) 30 ml FOUR TIMES A DAY ORAL 08/16/19 09:00 09/15/19 08:59 08/17/19 08:43 Albuterol/ Ipratropium (Albuterol/ Ipratropium) 3 ml Q4H PRN HHN Shortness of Breath 08/15/19 22:00 08/17/19 21:59 Azithromycin 250 mg/Dextrose 275 ml @ 275 mls/hr Q24HRS IV 08/16/19 15:00 08/20/19 15:59 08/16/19 14:16 Cefepime HCl 2 gm/ Dextrose 110 ml @ 220 mls/hr EVERY 12 HOURS IV 08/16/19 09:00 08/19/19 20:59 08/17/19 08:46 Guaifenesin (Mucinex ER) 600 mg TWICE A DAY ORAL 08/16/19 09:00 09/14/19 17:59 08/17/19 08:43 Guaifenesin (Robitussin) 100 mg Q4H PRN ORAL For Cough 08/15/19 22:00 09/14/19 13:59 08/17/19 08:43 Heparin Sodium (Porcine) (Heparin 5000 units/ml) 5,000 units EVERY 12 HOURS SUBQ 08/16/19 09:00 09/11/19 20:59 08/17/19 08:45 Morphine Sulfate (Morphine Sulfate) 2 mg Q4H PRN IVP Moderate Pain (Pain Scale 4-6) 08/15/19 22:00 08/19/19 21:59 Nitroglycerin (Ntg) 0.4 mg Q5MIN X 3 DOSES PRN SL Prn Chest Pain 08/15/19 21:45 09/14/19 21:44 Ondansetron HCl (Zofran) 4 mg Q6H PRN IVP Nausea & Vomiting 08/15/19 21:45 09/11/19 15:44 Polyethylene Glycol (Miralax) 17 gm DAILYPRN PRN ORAL Constipation 08/15/19 22:00 09/14/19 21:59 Temazepam (Restoril) 15 mg HSPRN PRN ORAL Insomnia 08/16/19 21:00 08/19/19 20:59 Allergies: Coded Allergies: No Known Allergies (Unverified , 08/12/19) Subjective awake, alert, responsive, on NC, Daughter at bedside Objective Last Vital Signs Date Time Temp Pulse Resp B/P (MAP) Pulse Ox O2 Delivery O2 Flow Rate FiO2 08/17/19 09:00 Nasal Cannula 4.0 08/17/19 08:00 97.0 91 19 123/70 (87) 94 08/16/19 20:06 36 Laboratory Tests Test 08/16/19 14:19 08/17/19 04:45 Arterial Blood pH 7.450 (7.350-7.450) Arterial Blood Partial Pressure CO2 44.2 mmHg (35.0-45.0) Arterial Blood Partial Pressure O2 85.4 mmHg (75.0-100.0) Arterial Blood HCO3 30.0 mmol/L (22.0-26.0) H Arterial Blood Oxygen Saturation 94.6 % (95-100) L Arterial Blood Base Excess 5.3 (-2-2) H Jason Test Positive White Blood Count 6.4 K/UL (4.8-10.8) Red Blood Count 3.83 M/UL (4.70-6.10) L Hemoglobin 11.6 G/DL (14.2-18.0) L Hematocrit 34.5 % (42.0-52.0) L Mean Corpuscular Volume 90 FL (80-99) Mean Corpuscular Hemoglobin 30.3 PG (27.0-31.0) Mean Corpuscular Hemoglobin Concent 33.6 G/DL (32.0-36.0) Red Cell Distribution Width 11.3 % (11.6-14.8) L Platelet Count 300 K/UL (150-450) Mean Platelet Volume 5.8 FL (6.5-10.1) L Neutrophils (%) (Auto) 61.7 % (45.0-75.0) Lymphocytes (%) (Auto) 18.9 % (20.0-45.0) L Monocytes (%) (Auto) 10.6 % (1.0-10.0) H Eosinophils (%) (Auto) 8.0 % (0.0-3.0) H Basophils (%) (Auto) 0.7 % (0.0-2.0) Sodium Level 142 MMOL/L (136-145) Potassium Level 3.8 MMOL/L (3.5-5.1) Chloride Level 105 MMOL/L (98-107) Carbon Dioxide Level 31 MMOL/L (21-32) Anion Gap 6 mmol/L (5-15) Blood Urea Nitrogen 13 mg/dL (7-18) Creatinine 0.7 MG/DL (0.55-1.30) Estimat Glomerular Filtration Rate > 60 mL/min (>60) Glucose Level 138 MG/DL (74-106) H Calcium Level 8.2 MG/DL (8.5-10.1) L Intake and Output 08/16/19 08/17/19 18:59 06:59 Intake Total 600 ml 480 ml Output Total 850 ml Balance 600 ml -370 ml Intake Oral 600 ml 480 ml Output Urine Total 850 ml # Voids 2 Objective General: No acute distress, awake and alert HEENT: NCAT, sclera anicteric, PERRL, EOMI. Neck: Supple, no significant jugular venous distention, Lungs: Fair inspiratory effort, Decrease air at bases, no Wheeze or Rales. Heart: Regular rate and rhythm, normal S1/S2, no murmur. Abdomen: soft, nontender, nondistended. Normoactive bowel sounds. Extremities: No Cyanosis , clubbing or edema. Neuro: A&O x 3, Able to move all extremities Skin: warm, no rashes or lesions Psych: Normal mood and affect Assessment/Plan Assessment/Plan 1. Bilateral parenchymal infiltrates, likely secondary to community-acquired pneumonia. 2. Mediastinal adenopathy, reactive versus underlying lymphoproliferative disorder. 3. Pulmonary hypertension. 78 mmhg per echo 6. MR PLAN Abx: Azithromycin, Cefepime Monitor Labs and Culture DC home today on Home O2 F/U with my office in 1 week. Meliton Lentz MD Aug 17, 2019 13:34
[2019-08-17] MEDS ORDERED: LEVAQUIN500 MG ORAL (13:42)
--- NOTE | 2019-08-17 13:42 | Pulmonology Progress Note ---
Assessment/Plan Problems: (1) Pneumonia (2) Pulmonary hypertension (3) Dyspnea (4) Pleural plaque Assessment/Plan ASSESSMENT: The patient is a previously healthy 58-year-old male with a history of tuberculosis as a child, presenting with respiratory illness with bilateral infiltrates, mediastinal lymphadenopathy, and pulmonary hypertension. I suspect the patient had a URI/pneumonitis with possible superimposed bacterial pneumonia. I do need to review the images myself. I have only seen the report of the CT. For the time being, I think it is reasonable to continue current antimicrobial therapy and attempt to wean the patient off of oxygen. I will add some Mucinex to help mobilize his secretions and would continue as needed bronchodilators for the time being. PROBLEM LIST: 1. Bilateral parenchymal infiltrates, likely secondary to community-acquired pneumonia. 2. Likely antecedent URI/pneumonitis. 3. Mediastinal adenopathy, reactive versus underlying lymphoproliferative disorder. 4. Pleural changes, likely related to prior tuberculosis with pleural involvement greater than 40 years ago. 5. Pulmonary hypertension. 6. CHF with mild diastolic dysfunction and valvular heart disease. TREATMENT PLAN: 1. Optimize pulmonary hygiene/mobilize as tolerated. 2. Mucinex and p.r.n. Robitussin. 3. P.r.n. bronchodilators. 4. Continue antibiotics (azithromycin and cefepime) per ID, follow up cultures. 5. Procalcitonin and respiratory panel PCR sent to [facility] (pending) 6. Monitor volumes and renal function. 7. DVT prophylaxis, heparin subcutaneous. 8. Cautious p.o. with aspiration precautions. 9. The patient should have a repeat echo when acute issues have resolved. If persistent pulmonary hypertension, can be worked up further at that point. 10. The patient will also need to have parenchymal changes and lymphadenopathy followed to resolution. If persistent lymphadenopathy in the future, we can consider endobronchial ultrasound/FNA. D/W daughter, will repeat CT in 4 weeks @ [facility] (HRCT/prone and supine) 11. The patient is a Full Code. 12. Follow up with me in 2 weeks or earlier PRN. I explained the importance of follow up CT via manager cleaning to the family. They understand the possibility and implications of an underlying ILD, neoplasm or other process D/W Dr. Lentz Subjective Allergies: Coded Allergies: No Known Allergies (Unverified , 08/12/19) Subjective AFVSS now on 4L bouchra PO CXR unchanged Less cough less SOB no FC no CP Objective Last 24 Hour Vital Signs Date Time Temp Pulse Resp B/P (MAP) Pulse Ox O2 Delivery O2 Flow Rate FiO2 08/17/19 09:00 Nasal Cannula 4.0 08/17/19 08:00 97.0 91 19 123/70 (87) 94 08/17/19 08:00 97 08/17/19 04:00 90 08/17/19 00:00 90 08/17/19 00:00 97.7 95 20 102/63 (76) 93 08/16/19 21:00 Nasal Cannula 4.0 08/16/19 20:06 97 Nasal Cannula 4.0 36 08/16/19 20:06 89 18 97 Nasal Cannula 4.0 36 08/16/19 20:00 85 08/16/19 20:00 97.0 95 20 103/69 (80) 97 08/16/19 16:00 98.2 89 18 115/73 (87) 98 08/16/19 16:00 88 Intake and Output 08/16/19 08/17/19 19:00 07:00 Intake Total 600 ml 480 ml Output Total 850 ml Balance 600 ml -370 ml Intake Oral 600 ml 480 ml Output Urine Total 850 ml # Voids 2 General Appearance: WD/WN, no acute distress HEENT: normocephalic, atraumatic, anicteric, mucous membranes moist Respiratory/Chest: rhonchi - dec Cardiovascular: normal peripheral pulses, normal rate, regular rhythm Abdomen: normal bowel sounds, soft, non tender, no organomegaly, non distended , no mass Extremities: no cyanosis, no clubbing, no edema Laboratory Tests 08/16/19 14:19: Arterial Blood pH 7.450, Arterial Blood Partial Pressure CO2 44.2, Arterial Blood Partial Pressure O2 85.4, Arterial Blood HCO3 30.0H, Arterial Blood Oxygen Saturation 94.6L, Arterial Blood Base Excess 5.3H, Jason Test Positive 08/17/19 04:45: White Blood Count 6.4, Red Blood Count 3.83L, Hemoglobin 11.6L, Hematocrit 34.5L , Mean Corpuscular Volume 90, Mean Corpuscular Hemoglobin 30.3, Mean Corpuscular Hemoglobin Concent 33.6, Red Cell Distribution Width 11.3L, Platelet Count 300, Mean Platelet Volume 5.8L, Neutrophils (%) (Auto) 61.7, Lymphocytes (%) (Auto) 18.9L, Monocytes (%) (Auto) 10.6H, Eosinophils (%) (Auto ) 8.0H, Basophils (%) (Auto) 0.7, Sodium Level 142, Potassium Level 3.8, Chloride Level 105, Carbon Dioxide Level 31, Anion Gap 6, Blood Urea Nitrogen 13 , Creatinine 0.7, Estimat Glomerular Filtration Rate > 60, Glucose Level 138H, Calcium Level 8.2L Current Medications Medications (Trade) Dose Ordered Sig/Jessie Route PRN Reason Start Time Stop Time Status Last Admin Dose Admin Acetaminophen (Tylenol) 650 mg Q4H PRN ORAL T>100.5 08/15/19 23:45 09/11/19 15:44 Al Hydroxide/Mg Hydroxide (Mylanta) 30 ml FOUR TIMES A DAY ORAL 08/16/19 09:00 09/15/19 08:59 08/17/19 13:31 Albuterol/ Ipratropium (Albuterol/ Ipratropium) 3 ml Q4H PRN HHN Shortness of Breath 08/15/19 22:00 08/17/19 21:59 Azithromycin 250 mg/Dextrose 275 ml @ 275 mls/hr Q24HRS IV 08/16/19 15:00 08/20/19 15:59 08/16/19 14:16 Cefepime HCl 2 gm/ Dextrose 110 ml @ 220 mls/hr EVERY 12 HOURS IV 08/16/19 09:00 08/19/19 20:59 08/17/19 08:46 Guaifenesin (Mucinex ER) 600 mg TWICE A DAY ORAL 08/16/19 09:00 09/14/19 17:59 08/17/19 08:43 Guaifenesin (Robitussin) 100 mg Q4H PRN ORAL For Cough 08/15/19 22:00 09/14/19 13:59 08/17/19 08:43 Heparin Sodium (Porcine) (Heparin 5000 units/ml) 5,000 units EVERY 12 HOURS SUBQ 08/16/19 09:00 09/11/19 20:59 08/17/19 08:45 Morphine Sulfate (Morphine Sulfate) 2 mg Q4H PRN IVP Moderate Pain (Pain Scale 4-6) 08/15/19 22:00 08/19/19 21:59 Nitroglycerin (Ntg) 0.4 mg Q5MIN X 3 DOSES PRN SL Prn Chest Pain 08/15/19 21:45 09/14/19 21:44 Ondansetron HCl (Zofran) 4 mg Q6H PRN IVP Nausea & Vomiting 08/15/19 21:45 09/11/19 15:44 Polyethylene Glycol (Miralax) 17 gm DAILYPRN PRN ORAL Constipation 08/15/19 22:00 09/14/19 21:59 Temazepam (Restoril) 15 mg HSPRN PRN ORAL Insomnia 08/16/19 21:00 08/19/19 20:59 Isidro Martinez MD Aug 17, 2019 13:42
--- NOTE | 2019-08-17 14:28 | NUR ---
DISCHARGE PLANNING: PATIENT IS IN NEED OF HOME OXYGEN THERAPY REFERRED TO [facility] F: [phone] WAITING FOR INSURANCE AUTHORIZATION
[2019-08-17] MEDS ORDERED: MIRALAX17 G2 ORAL (15:42)
[2019-08-17] MEDS: Azithromycin 250 MG in D5W 275 ML IV SCH (15:48)
[2019-08-17 16:00] VITALS: BP 113/77
--- NOTE | 2019-08-17 17:00 | NUR ---
DISCHARGE PLANNING: DISCHARGE PLANNING: PATIENT IS IN NEED OF HOME OXYGEN THERAPY REFERRED TO [facility] F: [phone] T: [phone] WAITING FOR INSURANCE AUTHORIZATION [facility] T: [phone] BOTH [facility] AND [facility] AWARE AND HAVE ALL APPROPRIATE DOCUMENTS NUMBER TO NURSING STATION GIVEN TO [facility] FOR AUTHORIZATION WAITING FOR AUTHORIZATION
--- NOTE | 2019-08-17 19:25 | NUR ---
NURSE NOTES: Patient discharged to home per Dr. Lentz. Prescription given to the patient, education and instruction given to the patient. Per family member Oxygen will be deliver to home within 30min, patient received one oxygen tank at this time. Family member, daughter and , at the bedside. IV removed, ID band removed and placed in shredder. Patient discharged home with all belongings.
--- NOTE | 2019-08-18 10:08 | Discharge Summary ---
Discharge Summary Discharge Summary _ PDATE OF ADMISSION: 08/12/2019 DATE OF DISCHARGE: 08/17/2019 DISCHARGED BY: Dr. Lentz REASON FOR ADMISSION: 58 years old male with no significant past medical history presented to emergency room with shortness of breath. Patient was seen at his primary care provider office the same day with nonproductive cough for 3 days and not feeling well. At the office he became acutely short of breath , and paramedics were called. Patient was hypoxic, saturating in the low 80s. Patient required supplemental oxygen. No fevers or chills. Patient also reported chest pain 3 days ago, but no current chest pain, no leg edema . No nasal congestion , no sinus pain , no sore throat, no rash . Patient admitted to smoking. Upon evaluation clinical exam physical examination revealed bilateral crackles and persistent hypoxia . Patient required nonrebreathing mask. Laboratory work-up revealed no leukocytosis, stable hemoglobin and hematocrit . ABG on 100% nonrebreathing mask revealed hypoxia with O2 sat 88%, no acidosis. Stable electrolytes and renal parameters. Glucose 154. Stable LFT. Troponin negative. proBNP 1548. EKG revealed sinus tachycardia, no acute ischemic changes Albumin 3.2. Lactic acid 1.4. D-dimer was positive. Urinalysis revealed +2 protein, no evidence of urinary tract infection. Chest x-ray revealed bilateral extensive predominantly perihilar infiltrates versus edema. Possible trace bilateral pleural effusion. Dense right-sided pleural calcification , possibly indicative of old inflammatory disease. Borderline cardiomegaly. Septic work-up initiated. Patient started on the BiPAP. Patient admitted to telemetry floor for further management. . CONSULTANTS: choral director Dr. Arambula pulmonary Dr. Martinez ID specialist Dr. Horowitz [facility] COURSE: Patient admitted to telemetry floor . Patient initially was on the BiPAP. Patient started on empiric antibiotic for community acquired pneumonia. Electrical And Radio Mock Up Mechanic followed. Patient was followed-up with ABG and chest x-ray. CT angiogram of the chest revealed no evidence of acute pulmonary emboli or other acute thoracic vascular pathology. Extensive bilateral pulmonary parenchymal airspace disease , probably indicative of pneumonia or pulmonary edema. Extensive right-sided pleural thickening and calcification, likely on the basis of old inflammation. Cardiomegaly. Mediastinal lymphadenopathy, nonspecific, could be reactive or neoplastic Supplemental oxygen titrated to keep pulse oximetry above 92%. Pulmonary toilet with bronchodilator provided. DVT prophylaxis provided. Patient started on Mucinex and as needed Robitussin. Ambulation was encouraged. Volumes were closely monitor. Patient started on cautious oral hydration with strict aspiration precaution. Echocardiogram revealed preserved ejection fraction of 65% with mild left ventricular hypertrophy. No evidence of wall motion abnormality to the extent visualized. Moderate mitral and tricuspid regurgitation. Right ventricular systolic pressure of 78 consistent with a severe pulmonary hypertension. Per choral director, majority of the symptoms were likely related to pulmonary infection. Telemetry continued to show sinus rhythm. Repeated troponin was negative as well. Electrical And Radio Mock Up Mechanic recommended to repeat echocardiogram when active issues resolved. If patient continue to have persistent pulmonary hypertension, he can be worked up further up at that point. Patient also need to follow-up with the imaging due to parenchymal changes and lymphadenopathy , noted on the imaging. If persistent lymphadenopathy , consider endobrachial ultrasound/fine-needle aspiration . Per firefighting equipment specialist pleural changes were likely related to prior tuberculosis with pleural involvement , greater than 40 years ago. ID specialist followed. Nasal swab for influenza was negative. Blood cultures were negative. Sputum culture was negative. Urine culture was negative. Urine Legionella antigen negative. Respiratory panel for PCR was collected and sent to outside laboratory. Results still pending at time of this dictation. Patient was able to be weaned off BiPAP to Venturi mask and then subsequently to nasal cannula. Patient remained afebrile, no leukocytosis . Hemoglobin A1c 6.6 . Patient was counseled no concentrated sweet diet . Patient will be starting on anti-glycemic regimen as outpatient upon follow up with physician. Patient was counseled on smoking cessation, he declined Nicotine patch. Patient clinically stabilized. Home oxygen was arranged. Patient was stable for discharge home on home oxygen and antibiotic to comeplete the course. FINAL DIAGNOSES: Acute hypoxemic respiratory failure requiring BiPAP- improved Bilateral parenchymal infiltrates, likely secondary to community-acquired pneumonia Likely antecedent upper respiratory infection/pneumonitis Mediastinal adenopathy, reactive versus underlying lymphoproliferative disorder Pulmonary hypertension Mitral regurgitation CHF with mild diastolic dysfunction and valvular heart disease Pleural changes likely related to prior tuberculosis with pleural involvement, greater than 40 years ago Diabetes mellitus, new onset DISCHARGE MEDICATIONS: See Medication Reconciliation list. DISCHARGE INSTRUCTIONS: Patient was discharged home. Patient to follow-up with Dr. Lentz in 1 week. I have been assigned to dictate discharge summary for this account. I was not involved in the patient's management. Mary Aburto NP Aug 18, 2019 10:08
--- NOTE | 2019-08-20 13:39 | NUR ---
*-* INSURANCE *-* ALL CLINICALS HAVE BEEN FAXED TO: TEVIN S/Raj BOND...CAP TO [facility]: DONNA Gruber- [phone] F- [phone]...REVIEW/CLINICAL
== END 2019-08-17 20:04 | disposition home or self-care (01) | DRG 139 ==
LOC: EDBD 12:03 → EMR 12:30 → EDBEDREQSVC 13:43 → 2W 14:00 → EDBEDREQ 14:53 → 2E 08-15 21:40
PROC: 5A09357 Assistance with Respiratory Ventilation, Less than 24 Consecutive Hours, Continuous Positive Airway Pressure (ICD-10-PCS; principal; 2019-08-12)
DX: J18.9 Pneumonia, unspecified organism (principal); J96.01 Acute respiratory failure with hypoxia; R59.0 Localized enlarged lymph nodes; I27.20 Pulmonary hypertension, unspecified; I50.30 Unspecified diastolic (congestive) heart failure; Z86.11 Personal history of tuberculosis; E11.9 Type 2 diabetes mellitus without complications; I89.9 Noninfective disorder of lymphatic vessels and lymph nodes, unspecified; F17.200 Nicotine dependence, unspecified, uncomplicated; I34.0 Nonrheumatic mitral (valve) insufficiency; I36.1 Nonrheumatic tricuspid (valve) insufficiency
CPT/HCPCS: 36415; 36600; 71045; 71275; 80048; 80053; 81001; 82164; 82803; 83036; 83605; 83735; 83880; 84100; 84484; 85007; 85025; 85379; 85610; 85651; 85730; 86140; 86710; 87040; 87070; 87086; 87205; 93005; 93306; 94640; 94660; 94664; 96365; 96368; 99291; J7620